=== PATIENT | male | born 1955 | race Caucasian/White ===

== ENCOUNTER 2021-04-24 19:51 | Inpatient (IN) | payer MEDICARE, MEDICAID, SELFPAY ==
--- NOTE | ~2021-04-24 | XR_ITS ---
EXAMINATION: XR CHEST CLINICAL INFORMATION: Shortness of breath COMPARISON: Chest x-ray July 14, 2019 TECHNIQUE: 2 views of the chest were obtained. FINDINGS: The cardiac silhouette is mildly enlarged. Lungs are adequately aerated. There is no lobar consolidation. No pleural effusion or pneumothorax. Approximately 1 cm nodular density of the lateral left lung base is nonspecific but suspected to represent a nipple shadow. Mild degenerative changes of the spine. XR/XR chest 2V IMPRESSION: No acute pulmonary pathology.
--- NOTE | ~2021-04-24 | NM_ITS ---
EXAMINATION: PULMONARY PERFUSION STUDY CLINICAL INFORMATION: Shortness of breath, legs swollen, elevated d-dimer. COMPARISON: No previous lung scan is available for comparison. Radiographs of the chest dated 04/24/2021, the same date as this lung scan are available for comparison. TECHNIQUE: Following the intravenous injection of 4.0 mCi Tc-99m MAA, an 8-view perfusion study was performed using a gamma scintillation camera. FINDINGS: No segmental perfusion defects are present. There is homogeneous distribution of activity bilaterally. There are no focal anatomic appearing perfusion defects present. The cardiac silhouette mediastinum are moderately dilated. NM/NM pul perfusion IMPRESSION: Very low probability of pulmonary embolism. Cardiomegaly.
--- NOTE | ~2021-04-24 | US_ITS ---
EXAMINATION: US VENOUS ULTRASOUND WITH DOPPLER LOWER EXTREMITY, BILATERAL CLINICAL INFORMATION: Bilateral lower extremity swelling. Assess for occult DVT. COMPARISON: None TECHNIQUE: Ultrasound of the deep veins is performed from the hip to the calf with compression sonography and color and pulse Doppler assessment. Spectral analysis with color-flow imaging is performed. FINDINGS: RIGHT: There is normal venous compression and respiratory variation and augmented flow. The visualized common femoral vein, superficial femoral vein, profunda femoral vein, popliteal vein, and the trifurcation region shows no evidence of deep venous thrombosis. No popliteal fossa cyst. LEFT: There is normal venous compression and respiratory variation and augmented flow. The visualized common femoral vein, superficial femoral vein, profunda femoral vein, popliteal vein, and the trifurcation region shows no evidence of deep venous thrombosis. No popliteal fossa cyst. US/US venous duplex LE BI IMPRESSION: No DVT demonstrated in the bilateral lower extremity.
[2021-04-24 20:08] VITALS: BP 163/61; PULSE 64; RESP 13; TEMP 36.9; O2SAT 96; BMI 32.5
--- NOTE | 2021-04-24 20:09 | ECG_ITS ---
Test Reason : CHEST PAIN Blood Pressure : / mmHG Vent. Rate : 059 BPM Atrial Rate : 059 BPM P-R Int : 226 ms QRS Dur : 180 ms QT Int : 558 ms P-R-T Axes : 049 -27 -12 degrees QTc Int : 552 ms Sinus bradycardia with 1st degree A-V block Right bundle branch block Minimal voltage criteria for LVH, may be normal variant ( R in aVL ) Abnormal ECG Heart rate has decreased Referred By: Sally Howard Electronically Signed By:BRIANA CANAS MD
--- NOTE | 2021-04-24 20:10 | ED_ITS ---
HPI - Chest Pain General Chief Complaint: Chest Pain Stated Complaint: chf Time Seen by Provider: 04/24/21 19:54 Source: EMS Mode of arrival: EMS Limitations: no limitations History of Present Illness HPI narrative: 65-year-old male to female who goes by Sasha from [facility] with a past medical history of cardiomyopathy with an EF of 30-40% on 40 mg of Lasix, RV dysfunction, [id number] aortic regurgitation, schizoaffective disorder, anxiety, depression, hyperlipidemia, recurrent pancreatitis here with complaints of increasing leg swelling over the last week with a 20 lb weight gain with shortness of breath and chest pain fell today. Chest pain is constant, worsened with deep breathing with no associated cough or fever. Related Data Home Medications Medication Instructions Recorded Confirmed alprazolam 1 mg tablet 1 tab PO BID PRN 04/24/21 04/24/21 amiodarone 400 mg tablet 1 tab PO DAILY 04/24/21 04/24/21 atorvastatin 40 mg tablet 1 tab PO DAILY 04/24/21 04/24/21 carvedilol 25 mg tablet 1 tab PO BID 04/24/21 04/24/21 diazepam 2 mg tablet 1 tab PO TID 04/24/21 04/24/21 furosemide 40 mg tablet 1 tab PO DAILY 04/24/21 04/24/21 hydroxyzine HCl 25 mg tablet 1 tab PO BID 04/24/21 04/24/21 isosorbide mononitrate 60 mg 1 tab PO DAILY 04/24/21 04/24/21 tablet,extended release 24 hr sacubitril 24 mg-valsartan 26 mg 1 tab PO BID 04/24/21 04/24/21 tablet (Entresto) Allergies Allergy/AdvReac Type Severity Reaction Status Date / Time No Known Allergies Allergy Unverified 03/23/20 19:45 [No Known Allergies*] Review of Systems Review of Systems: Yes all other systems are reviewed and are negative Constitutional: Constitutional: Reports no additional constitutional complaints, Denies body ache(s), Denies chills, Denies fever(s), Denies headache(s), Denies weakness and Reports weight gain Eyes: Eyes: Reports no additional eye complaints and Denies change in vision ENT: Reports system reviewed and no additional complaints, except as documented, Denies dizziness, Denies headache(s), Denies nasal congestion, Denies nasal discharge and Denies neck pain Cardiovascular: Cardiovascular: Reports no additional cardiovascular complaints, Reports chest pain, Reports leg edema and Reports dyspnea Respiratory: Respiratory: Reports no additional respiratory complaints, Denies cough and Reports dyspnea Gastrointestinal: Gastrointestinal: Reports no additional gastrointestinal complaints, Denies abdominal pain, Denies diarrhea, Denies nausea and Denies vomiting Genitourinary: Genitourinary: Denies urinary incontinence Musculoskeletal: Musculoskeletal: Reports no additional musculoskeletal complaints, Denies back pain, Denies arthralgias, Denies joint swelling, Denies neck pain, Denies numbness and Denies tingling Integumentary/Breasts: Skin/Breast: Reports system reviewed and no additional complaints, except as docu and Denies rash Neurologic: Reports system reviewed and no additional complaints, except as documented, Denies Abnormal speech present, Denies dizziness, Denies headache(s), Denies numbness, Denies tingling and Denies weakness PMFSH Past Medical History Attestation statement: The following information was validated with the patient. Source: old records reviewed and nursing notes reviewed Medical History (Updated 04/24/21 @ 22:09 by Rena Herron NP) Colon cancer Social History Social History Alcohol intake: never Patient Tobacco Use Status: Never used Tobacco Use of substances other than those prescribed or required for medical reasons: No Advance Directives: No Advance Directives Information Provided: No Physical Exam Vital Signs: Vital Signs: Last Vital Signs Temp 98.4 F 04/24/21 20:08 Pulse 65 04/24/21 23:13 Resp 12 04/24/21 23:13 BP 143/55 H 04/24/21 23:13 Pulse Ox 96 04/24/21 23:13 Body Mass Index 32.5 Const: General: cooperative, healthy appearing, comfortable and no acute distress Orientation/consciousness: patient oriented x3 Limitations: no limitations HENMT: Head: Yes normal to inspection Ears: hearing grossly normal bilaterally General nose exam: Normal external nose present Face and sinus: Yes normal facial exam Mouth: Normal oral and palatal mucosa present Throat: Yes posterior oropharynx normal Eyes: General: appearance normal, both eyes and all related structures Pupils: Equal, round and reactive pupils present Neck: Neck: Yes normal visual inspection Chest: Other: Central chest tender to palpate, worsened with deep breathing Chest palpation & inspection: normal inspection of the chest Resp: Effort & Inspection: normal respiratory effort Auscultation: clear to auscultation bilaterally Cardio: Rate: regular rate Rhythm: regular rhythm Peripheral pulses: Peripheral pulses 2+ throughout GI: Inspection: Yes normal to inspection Palpation (GI): Soft to palpation and nontender Auscultation: normal bowel sounds Back/Spine/Pelvis: Thoracic/Lumbar Spine: thoracic and lumbar spine normal to inspection Skin: General skin exam: no rashes or lesions noted Neuro: General: patient oriented x3, no focal motor deficits and normal sensation to monofilament Cranial nerves: Yes Equal, round and reactive pupils present Cognition (Neuro): normal cognition Speech: No Abnormal sp eech present Gait exam (Neuro): Normal gait present Motor exam (neuro): 5/5 motor strength present throughout Extrem: Other: Bilateral lower extremity edema which is pitting extending to the knees 2+ no pain Small abrasion to the left dorsal distal tibia with mild erythema General: Yes normal to inspection Course Course Course Narrative: 65-year-old male to female transgender here with complaints of weight gain, lower extremity swelling, shortness of breath and pleuritic chest pain. On exam vitals are stable. She does have bilateral lower extremity pitting edema. Will need chest x-ray, EKG, labs. Will likely need diuresis and admission 2200-chest x-ray shows no acute finding. Initial troponin indeterminate at 21. EKG shows no changes. Chest pain is atypical in nature. Will plan for repeat 3 hour troponin. BNP elevated. Symptoms likely related to congestive heart failure. Will give 40 mg IV Lasix. Will need admission 2214-spoke to Dr. Howard accepted admission. Repeat troponin and D-dimer are pending 2244-elevated D-dimer. Discussed case with Dr. Howard from medicine. Unable to obtain CT a due to renal function. Therefore a V/Q scan was ordered (will not happen till AM-medicine will follow). Bilateral lower extremity ultrasound. MDM - Chest Pain MDM Narrative Medical decision making narrative: ACS, PE, CHF exacerbation, pneumonia Medical Records Data Attestation: I reviewed the patient's medical records. Lab Data Attestation: I reviewed the patient's lab results. Result diagrams: 04/24/21 20:21 04/24/21 20:21 Labs: Lab Results 04/24/21 04/24/21 04/24/21 Range/Units 20:21 20:21 20:21 WBC 6.8 (4.8-10.8) X10*3/uL RBC 4.10 L (4.60-5.80) X10*6/uL Hgb 12.8 L (14.0-18.0) g/dl Hct 36.6 L (42-52) % MCV 89.3 (80-98) fL MCH 31.2 (27.0-33.0) pg MCHC 35.0 (31.0-36.0) g/dl RDW 12.7 (11.0-16.0) % Plt Count 184 (160-400) X10*3/uL MPV 8.8 L (9.4-12.4) fL Immature Gran % (Auto) 0.3 (0.0-0.4) % Neut % (Auto) 56.7 (45-73) % Lymph % (Auto) 28.3 (20-40) % Collier % (Auto) 7.8 (2-11) % Eos % (Auto) 5.9 H (0-4) % Baso % (Auto) 1.0 (0-2) % Lymph # (Auto) 1.9 (1.2-4.9) X10*3/uL Collier # (Auto) 0.5 (0.1-1.2) X10*3/uL Eos # (Auto) 0.4 (0.0-0.4) X10*3/uL Baso # (Auto) 0.1 (0.0-0.2) X10*3/uL Abs Immat Gran (auto) 0.02 (0.00-0.03) X10*3/uL Absolute Neuts (auto) 3.8 (2.0-8.3) X10*3/uL Absolute Nucleated RBC 0.000 (0.0-0.012) X10*3/uL Nucleated RBC % (auto) 0.0 (0.0-0.2) /100WBC PT 12.7 (9.9-13.0) SEC INR 1.1 (0.9-1.1) D-Dimer 573 NG/ML Sodium 140 (135-145) mmol/L Potassium 3.8 (3.3-5.1) mmol/L Chloride 108 (96-108) mmol/L Carbon Dioxide 23 (22-29) mmol/L Anion Gap 13 (12-20) BUN 15 (9-16) mg/dL Creatinine 1.52 H (0.5-1.4) mg/dL Estim Creat Clear Calc 54.7 Estimated GFR 46 Random Glucose 90 (60-115) mg/dL Calcium 8.1 L (8.4-10.2) mg/dL Magnesium 2.2 (1.6-2.6) mg/dL Total Bilirubin 0.5 (0.0-1.0) mg/dL Direct Bilirubin 0.3 (0.0-0.5) mg/dL AST 35 (5-37) U/L ALT 58 H (0-40) U/L Alkaline Phosphatase 71 (39-117) U/L Troponin I High Sens (<3.5-35.0) ng/L B-Natriuretic Peptide (<100) pg/mL Total Protein 7.0 (6.5-8.0) g/dL Albumin 4.0 (3.5-5.0) g/dL Lipase 40 (8-78) U/L COVID-19 (MICHAEL) (Negative) COVID-19 Clin Com 04/24/21 04/24/21 Range/Units 20:21 20:21 WBC (4.8-10.8) X10*3/uL RBC (4.60-5.80) X10*6/uL Hgb (14.0-18.0) g/dl Hct (42-52) % MCV (80-98) fL MCH (27.0-33.0) pg MCHC (31.0-36.0) g/dl RDW (11.0-16.0) % Plt Count (160-400) X10*3/uL MPV (9.4-12.4) fL Immature Gran % (Auto) (0.0-0.4) % Neut % (Auto) (45-73) % Lymph % (Auto) (20-40) % Collier % (Auto) (2-11) % Eos % (Auto) (0-4) % Baso % (Auto) (0-2) % Lymph # (Auto) (1.2-4.9) X10*3/uL Collier # (Auto) (0.1-1.2) X10*3/uL Eos # (Auto) (0.0-0.4) X10*3/uL Baso # (Auto) (0.0-0.2) X10*3/uL Abs Immat Gran (auto) (0.00-0.03) X10*3/uL Absolute Neuts (auto) (2.0-8.3) X10*3/uL Absolute Nucleated RBC (0.0-0.012) X10*3/uL Nucleated RBC % (auto) (0.0-0.2) /100WBC PT (9.9-13.0) SEC INR (0.9-1.1) D-Dimer NG/ML Sodium (135-145) mmol/L Potassium (3.3-5.1) mmol/L Chloride (96-108) mmol/L Carbon Dioxide (22-29) mmol/L Anion Gap (12-20) BUN (9-16) mg/dL Creatinine (0.5-1.4) mg/dL Estim Creat Clear Calc Estimated GFR Random Glucose (60-115) mg/dL Calcium (8.4-10.2) mg/dL Magnesium (1.6-2.6) mg/dL Total Bilirubin (0.0-1.0) mg/dL Direct Bilirubin (0.0-0.5) mg/dL AST (5-37) U/L ALT (0-40) U/L Alkaline Phosphatase (39-117) U/L Troponin I High Sens 21.8 (<3.5-35.0) ng/L B-Natriuretic Peptide 837 H (<100) pg/mL Total Protein (6.5-8.0) g/dL Albumin (3.5-5.0) g/dL Lipase (8-78) U/L COVID-19 (MICHAEL) Negative (Negative) COVID-19 Clin Com See Note Imaging Data Chest x-ray: Attestation: I personally reviewed and interpreted this imaging study as follows: Radiologist's impression: FINDINGS: The cardiac silhouette is mildly enlarged. Lungs are adequately aerated. There is no lobar consolidation. No pleural effusion or pneumothorax. Approximately 1 cm nodular density of the lateral left lung base is nonspecific but suspected to represent a nipple shadow. Mild degenerative changes of the spine. XR/XR chest 2V IMPRESSION: No acute pulmonary pathology. ECG Data ECG #1: Attestation: I personally reviewed and interpreted this ECG as follows: ECG interpretation date: 04/24/21 ECG interpretation time: 21:08 Interpretation: Sinus bradycardia with first-degree AV block, right bundle branch block, ST depressions in leads 3 and V6 Discharge Plan Discharge Clinical Impression: Atypical chest pain, CHF (congestive heart failure) Patient Disposition: Admitted As Inpatient
[2021-04-24 20:28] LABS: MANUAL DIFF FLAG NO
[2021-04-24 20:30] LABS: Basophils Absolute Auto 0.1 X10*3/uL (0.0-0.2); Eosinophils Absolute Auto 0.4 X10*3/uL (0.0-0.4); Eosinophils Percent Auto 5.9 % (0-4); Hematocrit 36.6 % (42-52); Hemoglobin 12.8 g/dl (14.0-18.0); Imm Gran Abs Auto 0.02 X10*3/uL (0.00-0.03); Imm Gran Pct Auto 0.3 % (0.0-0.4); Lymphocytes Absolute Auto 1.9 X10*3/uL (1.2-4.9); Lymphocytes Percent Auto 28.3 % (20-40); Mean Corpuscular Hemoglobin 31.2 pg (27.0-33.0); Mean Corpuscular Volume 89.3 fL (80-98); Mean Platelet Volume 8.8 fL (9.4-12.4); Monocytes Absolute Auto 0.5 X10*3/uL (0.1-1.2); Monocytes Percent Auto 7.8 % (2-11); Neutrophils Absolute Auto 3.8 X10*3/uL (2.0-8.3); Neutrophils Percent Auto 56.7 % (45-73); Platelet Count 184 X10*3/uL (160-400); Red Cell Distribution Width 12.7 % (11.0-16.0); White Blood Count 6.8 X10*3/uL (4.8-10.8)
[2021-04-24 20:35] LABS: INTERNATIONAL NORM RATIO 1.1 (0.9-1.1); Prothrombin Time 12.7 SEC (9.9-13.0)
[2021-04-24 20:45] LABS: COVID-19 Test Negative (Negative)
[2021-04-24 20:50] LABS: Alanine Aminotransferase 58 U/L (0-40); Alkaline Phosphatase 71 U/L (39-117); Anion Gap 13 (12-20); Aspartate Amino Transferase 35 U/L (5-37); Bilirubin Direct 0.3 mg/dL (0.0-0.5); Bilirubin Total 0.5 mg/dL (0.0-1.0); Blood Urea Nitrogen 15 mg/dL (9-16); Calcium 8.1 mg/dL (8.4-10.2); Carbon Dioxide 23 mmol/L (22-29); Chloride 108 mmol/L (96-108); Creatinine Clr Calc Pharmacy 54.7; Estimated Glomerular Filt Rate 46; Glucose Random 90 mg/dL (60-115); Lipase 40 U/L (8-78); Magnesium 2.2 mg/dL (1.6-2.6); Potassium 3.8 mmol/L (3.3-5.1); Sodium 140 mmol/L (135-145)
[2021-04-24 20:51] LABS: B Type Natriuretic Peptide 837 pg/mL (<100); Troponin-I High Sensitivity 21.8 ng/L (<3.5-35.0)
[2021-04-24 22:38] LABS: D Dimer 573 NG/ML
[2021-04-24] MEDS: Furosemide 40 MG/4 ML VIAL IVPUSH (22:40)
[2021-04-24 23:13] VITALS: BP 143/55; PULSE 65; RESP 12; O2SAT 96
--- NOTE | 2021-04-24 23:21 | ECG_ITS ---
Test Reason : CHEST PAIN Blood Pressure : / mmHG Vent. Rate : 063 BPM Atrial Rate : 063 BPM P-R Int : 224 ms QRS Dur : 182 ms QT Int : 522 ms P-R-T Axes : 046 -23 -18 degrees QTc Int : 534 ms Sinus rhythm with 1st degree A-V block with occasional Premature ventricular complexes Right bundle branch block Minimal voltage criteria for LVH, may be normal variant ( R in aVL ) Abnormal ECG When compared with ECG of 24-APR-2021 21:08, Premature ventricular complexes are now Present Referred By: Sally Howard Electronically Signed By:BRIANA CANAS MD
--- NOTE | 2021-04-24 23:21 | PM.IMHP ---
History of Present Illness Date of Service: 04/24/21 Chief Complaint: Shortness of breath, chest pain This is a transgender female with past medical history of colon cancer, CHF with an ejection fraction of 35-40%, hyperlipidemia, schizoaffective disorder, anxiety and depression, who presents the hospital with complaints of shortness of breath, lower extremity swelling, as well as atypical left-sided chest pain. Patient reports that all her symptoms started about 1 week ago. Which she gained about 20 lb. She reports swelling in her abdomen legs, but she has pain all over the body but more on the left side that is sharp radiating to the back and front, this started this morning, intermittent, about 7/10, exacerbated by deep breath. Patient reports compliance with her Lasix 40 mg daily. Patient also complains of orthopnea and PND Denies any palpitations, no cough, no sputum production, abdominal pain nausea or vomiting, no diarrhea constipation, and no urinary symptoms. On arrival to the ED patient hemodynamically stable no significant abnormal vitals Labs are significant for WBC count of 6.8, hemoglobin of 12.8 nearly 15, creatinine of 1.52, with a baseline around 1.1 BNP of 837, COVID-19 negative, of 21 that increased to 25, EKG shows sinus bradycardia with right bundle-branch block, and nonspecific ST T wave changes Chest x-ray shows no acute pulmonary pathology Review of Systems Review of Systems: Yes all other systems are reviewed and are negative [facility] Medical History CHF (congestive heart failure) Colon cancer Hypertension Schizoaffective disorder Pertinent family history: Denies any family history Social History Alcohol intake: never Patient Tobacco Use Status: Never used Tobacco Use of substances other than those prescribed or required for medical reasons: No Advance Directives: No Advance Directives Information Provided: No Meds Allergies Allergy/AdvReac Type Severity Reaction Status Date / Time No Known Allergies Allergy Unverified 03/23/20 19:45 [No Known Allergies*] Active Medications: Current Medications Pharmacy Consult (Consult Rx Perform Med Rec) 1 each MISCELLANE ONCE PRN PRN Reason: Consult order Home Medications Medication Instructions Recorded Confirmed Last Taken Type alprazolam 1 mg tablet 1 tab PO BID PRN 04/24/21 04/24/21 Unknown History amiodarone 400 mg tablet 1 tab PO DAILY 04/24/21 04/24/21 Unknown History atorvastatin 40 mg tablet 1 tab PO DAILY 04/24/21 04/24/21 Unknown History carvedilol 25 mg tablet 1 tab PO BID 04/24/21 04/24/21 Unknown History diazepam 2 mg tablet 1 tab PO TID 04/24/21 04/24/21 Unknown History furosemide 40 mg tablet 1 tab PO DAILY 04/24/21 04/24/21 Unknown History hydroxyzine HCl 25 mg tablet 1 tab PO BID 04/24/21 04/24/21 Unknown History isosorbide mononitrate 60 mg 1 tab PO DAILY 04/24/21 04/24/21 Unknown History tablet,extended release 24 hr sacubitril 24 mg-valsartan 26 mg 1 tab PO BID 04/24/21 04/24/21 Unknown History tablet (Entresto) Physical Exam Vital Signs and Narrative: Vital Signs: Last Vital Signs Temp 98.4 F 04/24/21 20:08 Pulse 65 04/24/21 23:13 Resp 12 04/24/21 23:13 BP 143/55 H 04/24/21 23:13 Pulse Ox 96 04/24/21 23:13 Body Mass Index 32.5 Const: General: cooperative and no acute distress Orientation/consciousness: patient oriented x3 Eyes: General: appearance normal, both eyes and all related structures Pupils: Equal, round and reactive pupils present Resp: Effort & Inspection: normal respiratory effort Auscultation: clear to auscultation bilaterally Cardio: Rate: regular rate Rhythm: regular rhythm GI: Palpation (GI): Soft to palpation Auscultation: normal bowel sounds Skin: General skin exam: no rashes or lesions noted Neuro: General: patient oriented x3 Cranial nerves: Yes Equal, round and reactive pupils present Cognition (Neuro): normal cognition Extrem: Other: 3+ pitting edema bilaterally General: Yes normal to inspection Results Labs CBC and Chem 7: 04/25/21 06:28 04/25/21 06:28 Labs: Laboratory Results - last 24 hr 04/24/21 04/24/21 04/24/21 20:21 20:21 20:21 MCV 89.3 MCH 31.2 MCHC 35.0 RDW 12.7 Plt Count 184 MPV 8.8 L Immature Gran % (Auto) 0.3 Neut % (Auto) 56.7 Lymph % (Auto) 28.3 Angelina % (Auto) 7.8 Eos % (Auto) 5.9 H Baso % (Auto) 1.0 Lymph # (Auto) 1.9 Angelina # (Auto) 0.5 Eos # (Auto) 0.4 Baso # (Auto) 0.1 Abs Immat Gran (auto) 0.02 Absolute Neuts (auto) 3.8 Absolute Nucleated RBC 0.000 Nucleated RBC % (auto) 0.0 PT 12.7 INR 1.1 D-Dimer 573 Anion Gap 13 Estim Creat Clear Calc 54.7 Estimated GFR 46 Random Glucose 90 Calcium 8.1 L Magnesium 2.2 Total Bilirubin 0.5 Direct Bilirubin 0.3 AST 35 ALT 58 H Alkaline Phosphatase 71 Troponin I High Sens B-Natriuretic Peptide Total Protein 7.0 Albumin 4.0 Lipase 40 COVID-19 (MICHAEL) COVID-[employer] Com 04/24/21 04/24/21 20:21 20:21 MCV MCH MCHC RDW Plt Count MPV Immature Gran % (Auto) Neut % (Auto) Lymph % (Auto) Angelina % (Auto) Eos % (Auto) Baso % (Auto) Lymph # (Auto) Angelina # (Auto) Eos # (Auto) Baso # (Auto) Abs Immat Gran (auto) Absolute Neuts (auto) Absolute Nucleated RBC Nucleated RBC % (auto) PT INR D-Dimer Anion Gap Estim Creat Clear Calc Estimated GFR Random Glucose Calcium Magnesium Total Bilirubin Direct Bilirubin AST ALT Alkaline Phosphatase Troponin I High Sens 21.8 B-Natriuretic Peptide 837 H Total Protein Albumin Lipase COVID-19 (MICHAEL) Negative COVID-19 Clin Com See Note Imaging Radiologist's Impressions: Impressions Chest X-Ray 04/24/21 20:09 IMPRESSION: No acute pulmonary pathology. Assessment and Plan (1) Atypical chest pain: Status: Acute (2) CHF exacerbation: Status: Acute (3) NATIVDIAD (acute kidney injury): Status: Acute 65-year-old male to female transgender who presents to the hospital with complaints of shortness of breath, as well as lower extremity edema found to have CHF exacerbation # acute CHF exacerbation - has dyspnea, orthopnea, PND, elevated BNP lower extremity edema - has history of CHF with the reduced ejection fraction of 35-40% - on 40 of Lasix at baseline - at this time will start her on Lasix 40 IV b.i.d. - daily weight, strict I&O, low-sodium diet - echocardiogram - will consult Cardiology - continue Entresto, carvedilol, as well as Imdur # atypical pleuritic chest pain - no evidence of elevated troponin or EKG changes suggestive of ACS - has elevated D-dimer which may be secondary to his NATIVIDAD - patient has NATIVIDAD therefore unable to obtain CT angiogram - will obtain V/Q scan as well as venous Dopplers of lower extremities - at this time will start prophylactic Lovenox # NATIVIDAD - most likely secondary to CHF - start Lasix as above - follow BMP DVT prophylaxis: Lovenox Quality Stroke Does the patient have a stroke diagnosis?: No VTE Prior VTE?: No VTE Risk Level:: Medical - moderate - high VTE Device Contraindication: Treatment Not Indicated VTE Drug Contraindication: N/A - Med Ordered
[2021-04-24 23:37] VITALS: BP 143/55; PULSE 65; RESP 12; TEMP 36.9; O2SAT 96
[2021-04-24 23:55] LABS: Troponin-I High Sensitivity 25.4 ng/L (<3.5-35.0)
[2021-04-25] MEDS: diazePAM 2 MG TABLET PO ×4 (00:46→20:24)
[2021-04-25 03:25] VITALS: PULSE 47; RESP 14
[2021-04-25 05:27] VITALS: RESP 16
[2021-04-25] MEDS: Morphine Sulfate 4 MG/ML CARTRIDGE IVPUSH (05:27)
[2021-04-25 05:31] VITALS: BP 166/56; PULSE 59; RESP 16; O2SAT 96
[2021-04-25] MEDS: ALPRAZolam 0.5 MG TABLET 1 MG PO ×2 (05:36→12:08)
--- NOTE | 2021-04-25 06:24 | PC.NURSE ---
Patient is very histrionic is her presentation. Patient stated that she feels that her body is going to while in the hospital. She states I hope you know how really sick I am but I am okay with dying. Please make sure that the doctors are aware. Per patient she has an extensive cardiac history and is on many pain medications due to her extreme pain and espescially her chest pain. Patient is sinus jelena on the monitor. Blood pressure and other vital signs are stable. Patient also stating that she didnt sleep one ounce last night. I reassured the patient that the staff will take very good care of her while she was here and the doctors here are very good. I also informed her that she was in the right place and safe. Patient thanked me for caring and went back to resting quietly. Patient medicated for pain and anxiety.
[2021-04-25 06:33] LABS: MANUAL DIFF FLAG NO
[2021-04-25 06:36] LABS: Basophils Absolute Auto 0.1 X10*3/uL (0.0-0.2); Basophils Percent Auto 1.3 % (0-2); Eosinophils Absolute Auto 0.5 X10*3/uL (0.0-0.4); Eosinophils Percent Auto 7.2 % (0-4); Hematocrit 37.7 % (42-52); Hemoglobin 13.2 g/dl (14.0-18.0); Imm Gran Abs Auto 0.02 X10*3/uL (0.00-0.03); Imm Gran Pct Auto 0.3 % (0.0-0.4); Lymphocytes Absolute Auto 2.1 X10*3/uL (1.2-4.9); Lymphocytes Percent Auto 32.8 % (20-40); Mean Corpuscular Hemoglobin 31.7 pg (27.0-33.0); Mean Corpuscular Volume 90.6 fL (80-98); Mean Platelet Volume 8.6 fL (9.4-12.4); Monocytes Absolute Auto 0.6 X10*3/uL (0.1-1.2); Monocytes Percent Auto 8.6 % (2-11); Neutrophils Absolute Auto 3.2 X10*3/uL (2.0-8.3); Neutrophils Percent Auto 49.8 % (45-73); Platelet Count 173 X10*3/uL (160-400); Red Blood Count 4.16 X10*6/uL (4.60-5.80); Red Cell Distribution Width 12.8 % (11.0-16.0); White Blood Count 6.4 X10*3/uL (4.8-10.8)
[2021-04-25 06:51] LABS: Anion Gap 13 (12-20); Blood Urea Nitrogen 14 mg/dL (9-16); Calcium 8.1 mg/dL (8.4-10.2); Carbon Dioxide 26 mmol/L (22-29); Chloride 104 mmol/L (96-108); Creatinine Clr Calc Pharmacy 53.3; Estimated Glomerular Filt Rate 45; Glucose Random 85 mg/dL (60-115); Potassium 3.5 mmol/L (3.3-5.1); Sodium 139 mmol/L (135-145)
--- NOTE | 2021-04-25 11:02 | PM.CNCAR ---
History of Present Illness History of Present Illness Date of Service: 04/25/21 Chief complaint: Chf Exacerbation Narrative: This is a cardiology consultation regarding shortness of breath and chest pain. It seems that she is a patient of [facility]. Last ejection fraction for 2019 was 30-40%. Patient has also undergone a diagnostic catheterization that showed no significant coronary disease. It seems that patient has had several admissions for chest pains in the past. Current admission is again for shortness of breath, leg swelling and atypical left-sided chest pain. Per H and P, there has been a 20 lb weight gain. There is also sensation of distention in the abdomen. Pain is very atypical as it is present all over the body on the left side including legs. Review of Systems Review of Systems: Yes all other systems are reviewed and are negative Cardiovascular: Cardiovascular: Reports as per HPI, Reports no additional cardiovascular complaints, Denies acrocyanosis, Denies cool extremities, Denies painful fingertips, Reports chest pain, Reports chest pain at rest, Denies diaphoresis, Denies syncope, Denies irregular heart rhythm, Denies claudication, Denies leg edema, Denies lightheadedness, Denies palpitations and Reports dyspnea Respiratory: Respiratory: Reports dyspnea Neurologic: Denies syncope Endocrine: Endocrine: Denies palpitations PMFSH Past Medical History Medical History CHF (congestive heart failure) Colon cancer Hypertension Schizoaffective disorder Social History Social History Alcohol intake: never Patient Tobacco Use Status: Never used Tobacco Use of substances other than those prescribed or required for medical reasons: No Advance Directives: No Advance Directives Information Provided: No Meds Allergies Allergy/AdvReac Type Severity Reaction Status Date / Time No Known Allergies Allergy Unverified 03/23/20 19:45 [No Known Allergies*] Active Medications: Current Medications Acetaminophen (Acetaminophen 325 Mg Tablet) 650 mg PO Q6H PRN PRN Reason: Pain, Mild (Pain Scale 1-3) Albuterol/Ipratropium (Albuterol/Iprat 2.5/0.5mg 3 Ml Ampul.Neb) 3 ml INHALE RQ4H PRN PRN Reason: Shortness of Breath/Wheezing Alprazolam (Alprazolam 0.5 Mg Tablet) 1 mg PO BID PRN PRN Reason: Anxiety Last Admin: 04/25/21 05:36 Dose: 1 mg Documented by: Amiodarone HCl (Amiodarone Hcl 200 Mg Tablet) 400 mg PO DAILY [facility] Atorvastatin Calcium (Atorvastatin Calcium 40 Mg Tablet) 40 mg PO DAILY [facility] Carvedilol (Carvedilol 25 Mg Tablet) 25 mg PO BID [facility]; Protocol Diazepam (Diazepam 2 Mg Tablet) 2 mg PO TID [facility] Last Admin: 04/25/21 00:46 Dose: 2 mg Documented by: Docusate Sodium (Docusate Sodium 100 Mg Capsule) 100 mg PO DAILY PRN PRN Reason: Constipation Enoxaparin Sodium (Enoxaparin Sodium 40 Mg/0.4 Ml Syringe) 40 mg SUBCUT Q24H [facility] Last Admin: 04/25/21 00:47 Dose: Not Given Documented by: Furosemide (Furosemide 40 Mg/4 Ml Vial) 40 mg IVPUSH BID@0900,1800 [facility]; Protocol Hydroxyzine HCl (Hydroxyzine Hcl 25 Mg Tablet) 25 mg PO BID [facility] Isosorbide Mononitrate (Isosorbide Mononitrate 60 Mg Tab.Er.24h) 60 mg PO DAILY [facility]; Protocol Morphine Sulfate (Morphine Sulfate 4 Mg/Ml Cartridge) 4 mg IVPUSH Q4H PRN; Protocol PRN Reason: Pain, Severe (Pain Scale 7-10) Last Admin: 04/25/21 05:27 Dose: 4 mg Documented by: Ondansetron HCl (Ondansetron Hcl 4 Mg/2 Ml Vial) 4 mg IVPUSH Q8H PRN PRN Reason: Nausea and Vomiting Pharmacy Consult (Consult Rx Perform Med Rec) 1 each MISCELLANE ONCE PRN PRN Reason: Consult order Sacubitril/Valsartan (Sacubitril/Valsartan 1 Tab Tablet) 1 tab PO BID [facility]; Protocol Sodium Chloride (0.9 % Sodium Chloride Flush 3 Ml Syringe) 3 ml IVFLUSH QSHIFT [facility] Last Admin: 04/25/21 00:47 Dose: Not Given Documented by: Home Medications Medication Instructions Recorded Confirmed Last Taken Type alprazolam 1 mg tablet 1 tab PO BID PRN 04/24/21 04/24/21 Unknown History amiodarone 400 mg tablet 1 tab PO DAILY 04/24/21 04/24/21 Unknown History atorvastatin 40 mg tablet 1 tab PO DAILY 04/24/21 04/24/21 Unknown History carvedilol 25 mg tablet 1 tab PO BID 04/24/21 04/24/21 Unknown History diazepam 2 mg tablet 1 tab PO TID 04/24/21 04/24/21 Unknown History furosemide 40 mg tablet 1 tab PO DAILY 04/24/21 04/24/21 Unknown History hydroxyzine HCl 25 mg tablet 1 tab PO BID 04/24/21 04/24/21 Unknown History isosorbide mononitrate 60 mg 1 tab PO DAILY 04/24/21 04/24/21 Unknown History tablet,extended release 24 hr sacubitril 24 mg-valsartan 26 mg 1 tab PO BID 04/24/21 04/24/21 Unknown History tablet (Entresto) Physical Exam Vital Signs: Vital Signs: Last Vital Signs Temp 98.4 F 04/24/21 23:37 Pulse 59 04/25/21 05:31 Resp 16 04/25/21 05:31 BP 166/56 H 04/25/21 05:31 Pulse Ox 96 04/25/21 05:31 Body Mass Index 32.5 Const: General: cooperative and no acute distress HENMT: Other: Unremarkable Neck: Neck: Yes normal visual inspection Chest: Chest palpation & inspection: normal inspection of the chest Resp: Auscultation: clear to auscultation bilaterally, no crackles and no wheezes Cardio: Jugular venous distension: no JVD Palpation: normal PMI Heart sounds: S1 normal heart sound present, S2 normal heart sound present, no gallops, no murmurs and no rubs GI: Palpation (GI): Soft to palpation Back/Spine/Pelvis: Other: unremarkable Skin: General skin exam: no rashes or lesions noted Neuro: Cranial nerves: Yes Other cranial nerve findings present Extrem: General: Yes pedal edema (1+) Psych: Mental Status: other Results Labs and Meds Result diagrams: 04/25/21 06:28 04/25/21 06:28 Lab results: Laboratory Results - last 24 hr 04/24/21 04/24/21 04/24/21 20:21 20:21 20:21 WBC 6.8 RBC 4.10 L Hgb 12.8 L Hct 36.6 L MCV 89.3 MCH 31.2 MCHC 35.0 RDW 12.7 Plt Count 184 MPV 8.8 L Immature Gran % (Auto) 0.3 Neut % (Auto) 56.7 Lymph % (Auto) 28.3 [place] % (Auto) 7.8 Eos % (Auto) 5.9 H Baso % (Auto) 1.0 Lymph # (Auto) 1.9 [place] # (Auto) 0.5 Eos # (Auto) 0.4 Baso # (Auto) 0.1 Abs Immat Gran (auto) 0.02 Absolute Neuts (auto) 3.8 Absolute Nucleated RBC 0.000 Nucleated RBC % (auto) 0.0 PT 12.7 INR 1.1 D-Dimer 573 Sodium 140 Potassium 3.8 Chloride 108 Carbon Dioxide 23 Anion Gap 13 BUN 15 Creatinine 1.52 H Estim Creat Clear Calc 54.7 Estimated GFR 46 Random Glucose 90 Calcium 8.1 L Magnesium 2.2 Total Bilirubin 0.5 Direct Bilirubin 0.3 AST 35 ALT 58 H Alkaline Phosphatase 71 Troponin I High Sens B-Natriuretic Peptide Total Protein 7.0 Albumin 4.0 Lipase 40 COVID-19 (MICHAEL) COVID-InstaGIS 04/24/21 04/24/21 04/24/21 20:21 20:21 23:29 WBC RBC Hgb Hct MCV MCH MCHC RDW Plt Count MPV Immature Gran % (Auto) Neut % (Auto) Lymph % (Auto) [place] % (Auto) Eos % (Auto) Baso % (Auto) Lymph # (Auto) [place] # (Auto) Eos # (Auto) Baso # (Auto) Abs Immat Gran (auto) Absolute Neuts (auto) Absolute Nucleated RBC Nucleated RBC % (auto) PT INR D-Dimer Sodium Potassium Chloride Carbon Dioxide Anion Gap BUN Creatinine Estim Creat Clear Calc Estimated GFR Random Glucose Calcium Magnesium Total Bilirubin Direct Bilirubin AST ALT Alkaline Phosphatase Troponin I High Sens 21.8 25.4 B-Natriuretic Peptide 837 H Total Protein Albumin Lipase COVID-19 (MICHAEL) Negative COVIDSkai See Note 04/25/21 04/25/21 06:28 06:28 WBC 6.4 RBC 4.16 L Hgb 13.2 L Hct 37.7 L MCV 90.6 MCH 31.7 MCHC 35.0 RDW 12.8 Plt Count 173 MPV 8.6 L Immature Gran % (Auto) 0.3 Neut % (Auto) 49.8 Lymph % (Auto) 32.8 [place] % (Auto) 8.6 Eos % (Auto) 7.2 H Baso % (Auto) 1.3 Lymph # (Auto) 2.1 [place] # (Auto) 0.6 Eos # (Auto) 0.5 H Baso # (Auto) 0.1 Abs Immat Gran (auto) 0.02 Absolute Neuts (auto) 3.2 Absolute Nucleated RBC 0.000 Nucleated RBC % (auto) 0.0 PT INR D-Dimer Sodium 139 Potassium 3.5 Chloride 104 Carbon Dioxide 26 Anion Gap 13 BUN 14 Creatinine 1.56 H Estim Creat Clear Calc 53.3 Estimated GFR 45 Random Glucose 85 Calcium 8.1 L Magnesium Total Bilirubin Direct Bilirubin AST ALT Alkaline Phosphatase Troponin I High Sens B-Natriuretic Peptide Total Protein Albumin Lipase COVID-19 (MICHAEL) COVID-19 Clin Com ECG Interpretation: EKG with sinus rhythm, right bundle-branch block pattern, PVCs. Imaging Radiologist's impression: Impressions Chest X-Ray 04/24/21 20:09 IMPRESSION: No acute pulmonary pathology. Pulmonary Perfusion Imaging 04/24/21 22:48 IMPRESSION: Very low probability of pulmonary embolism. Cardiomegaly. Venous Duplex 04/25/21 09:01 IMPRESSION: No DVT demonstrated in the bilateral lower extremity. Assessment and Plan (1) Acute on chronic systolic (congestive) heart failure: Status: Acute (2) NICM (nonischemic cardiomyopathy): Status: Acute (3) Atypical chest pain: Status: Acute (4) PVC (premature ventricular contraction): Status: Acute Previous cardiology documentation reviewed. Per echocardiogram in 2019, LVEF was 30-40%. There was mild to moderate aortic regurgitation. Aortic root measurement was 3.7 cm. Cardiac catheterization performed this year showed proximal LAD 30% stenosis but otherwise unremarkable. On review of the last office note from [facility] from February of this year, diagnosis was nonischemic cardiomyopathy. Per their note, it seems that patient had refused to have lab work done and hence there was a lot of difficulty in continuing medications like Entresto without knowing the renal function. Additionally, amiodarone was used primarily for suppressing the PVCs but again if lab work cannot be reliably followed, should not be using this either. For the time being, okay to try empiric diuretics. Stop amiodarone unless reliable outpatient follow-up. Same with Entresto. Chest pain itself is likely noncardiac and does not need any specific workup. Procedures Date of Service Date of Service: 04/25/21
[2021-04-25 11:16] VITALS: BP 166/56
[2021-04-25] MEDS: Amiodarone HCL 200 MG TABLET 400 MG PO (11:16)
[2021-04-25] MEDS: Atorvastatin Calcium 40 MG TABLET PO (11:16)
[2021-04-25] MEDS: carvediloL 25 MG TABLET PO ×2 (11:17→20:26)
[2021-04-25] MEDS: hydrOXYzine HCL 25 MG TABLET PO ×2 (11:17→20:25)
[2021-04-25] MEDS: Furosemide 40 MG/4 ML VIAL IVPUSH ×2 (11:17→17:18)
[2021-04-25] MEDS: Isosorbide Mononitrate 60 MG TAB.ER.24H PO (11:19)
--- NOTE | 2021-04-25 12:18 | PC.NURSE ---
pt requesting prn xanax early, given, tolerating po w/o issue. r
--- NOTE | 2021-04-25 14:26 | MHC.CM.PN ---
Addendum entered by Dara Flores 04/26/21 08:16: [facility], 2nd Pfizer given 07/28. Addendum entered by Dara Flores 04/25/21 15:32: Only received 1 dose of Covid vaccine 07/12. Original Note: Attempted to meet with patient in regards to discharge planning. 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 Patient's guardian is the [facility]. Patient prefers to be called Sasha . T/W spoke with patient's [place] bilingual case manager, Anne Chavira via telephone at [phone]. Anne is very familiar with patient. Sasha was born male, has a long standing history of schizophrenia and anxiety. Patient has breast implants but never completely surgically transitioned from male to female. IMM explained and sent via fax to [phone]. Anticipate patient will return to [facility] via BLS when medically stable. Sasha may try not to return to [facility]. However, because she has a guardian, she is not able to make this decision. Patient has a son named Felix Mishra. He lives in [place], [place]. Sasha and Felix only met for the first time on Sunday 04/22. Per Anne, no medical information is to be provided to Felix about the patient. Continue to monitor for d/c needs.
[2021-04-25 15:49] VITALS: BP 125/47; PULSE 51; RESP 18; TEMP 36.4; O2SAT 93
[2021-04-25 17:01] VITALS: BMI 30.6
[2021-04-25] MEDS: 0.9 % Sodium Chloride Flush 3 ML SYRINGE IVFLUSH ×2 (17:18→20:28)
[2021-04-25] MEDS: Docusate Sodium 100 MG CAPSULE PO (17:18)
--- NOTE | 2021-04-25 17:34 | HO.PM.IMPN ---
Subjective Subjective Date of Service: 04/25/21 Interval History: No acute issues overnight. Complaining of diffuse body pain Review of Systems Denies chest pain Denies shortness of breath Denies nausea vomiting diarrhea Physical Exam Vital Signs: Vital Signs: Last Vital Signs Temp 97.6 F 04/25/21 15:49 Pulse 51 04/25/21 15:49 Resp 18 04/25/21 15:49 BP 125/47 L 04/25/21 15:49 Pulse Ox 93 04/25/21 15:49 Body Mass Index 30.6 Const: Other: No acute issues overnight resting comfortably HENMT: Other: Membranes moist oropharynx clear Resp: Other: Clear to auscultation all enriquez no rales rhonchi or wheezes Cardio: Other: No S4 positive S1-S2 no S3 without murmurs or gallops GI: Other: Soft nontender nondistended with normoactive bowel sounds Neuro: Other: Cranial nerves 2-12 grossly intact as tested. Motor is 5/5 lower extremities sensation is intact Extrem: Other: No edema Objective Data Active Medications Acetaminophen (Acetaminophen 325 Mg Tablet) 650 mg PO Q6H PRN PRN Reason: Pain, Mild (Pain Scale 1-3) Albuterol/Ipratropium (Albuterol/Iprat 2.5/0.5mg 3 Ml Ampul.Neb) 3 ml INHALE RQ4H PRN PRN Reason: Shortness of Breath/Wheezing Alprazolam (Alprazolam 0.5 Mg Tablet) 1 mg PO BID PRN PRN Reason: Anxiety Last Admin: 04/25/21 12:08 Dose: 1 mg Documented by: YANDEL Amiodarone HCl (Amiodarone Hcl 200 Mg Tablet) 400 mg PO DAILY [facility] Last Admin: 04/25/21 11:16 Dose: 400 mg Documented by: YANDEL Atorvastatin Calcium (Atorvastatin Calcium 40 Mg Tablet) 40 mg PO DAILY [facility] Last Admin: 04/25/21 11:16 Dose: 40 mg Documented by: YANDEL Bisacodyl (Bisacodyl 5 Mg Tablet.) 10 mg PO BEDTIME [facility] Carvedilol (Carvedilol 25 Mg Tablet) 25 mg PO BID [facility]; Protocol Last Admin: 04/25/21 11:17 Dose: 25 mg Documented by: YANDEL Diazepam (Diazepam 2 Mg Tablet) 2 mg PO TID [facility] Last Admin: 04/25/21 15:51 Dose: 2 mg Documented by: GODWIN Docusate Sodium (Docusate Sodium 100 Mg Capsule) 100 mg PO DAILY PRN PRN Reason: Constipation Last Admin: 04/25/21 17:18 Dose: 100 mg Documented by: LOREN Enoxaparin Sodium (Enoxaparin Sodium 40 Mg/0.4 Ml Syringe) 40 mg SUBCUT Q24H [facility] Last Admin: 04/25/21 00:47 Dose: Not Given Documented by: CANDICE Non-Admin Reason: Patient Refused Furosemide (Furosemide 40 Mg/4 Ml Vial) 40 mg IVPUSH BID@0900,1800 [facility]; Protocol Last Admin: 04/25/21 17:18 Dose: 40 mg Documented by: LOREN Hydroxyzine HCl (Hydroxyzine Hcl 25 Mg Tablet) 25 mg PO BID [facility] Last Admin: 04/25/21 11:17 Dose: 25 mg Documented by: YANDEL Isosorbide Mononitrate (Isosorbide Mononitrate 60 Mg Tab.Er.24h) 60 mg PO DAILY [facility]; Protocol Last Admin: 04/25/21 11:19 Dose: 60 mg Documented by: YANDEL Morphine Sulfate (Morphine Sulfate 4 Mg/Ml Cartridge) 4 mg IVPUSH Q4H PRN; Protocol PRN Reason: Pain, Severe (Pain Scale 7-10) Last Admin: 04/25/21 05:27 Dose: 4 mg Documented by: MISSY Ondansetron HCl (Ondansetron Hcl 4 Mg/2 Ml Vial) 4 mg IVPUSH Q8H PRN PRN Reason: Nausea and Vomiting Pharmacy Consult (Consult Rx Perform Med Rec) 1 each MISCELLANE ONCE PRN PRN Reason: Consult order Sacubitril/Valsartan (Sacubitril/Valsartan 1 Tab Tablet) 1 tab PO BID [facility]; Protocol Last Admin: 04/25/21 11:28 Dose: Not Given Documented by: YANDEL Non-Admin Reason: Med Not Available Senna (Sennosides 8.6 Mg Tablet) 17.2 mg PO BEDTIME [facility] Sodium Chloride (0.9 % Sodium Chloride Flush 3 Ml Syringe) 3 ml IVFLUSH QSHIFT [facility] Last Admin: 04/25/21 17:18 Dose: 3 ml Documented by: LOREN Labs CBC & Chem 7: 04/25/21 06:28 04/25/21 06:28 Labs: Laboratory Results - last 24 hr 04/24/21 04/24/21 04/24/21 20:21 20:21 20:21 MCV 89.3 MCH 31.2 MCHC 35.0 RDW 12.7 Plt Count 184 MPV 8.8 L Immature Gran % (Auto) 0.3 Neut % (Auto) 56.7 Lymph % (Auto) 28.3 [place] % (Auto) 7.8 Eos % (Auto) 5.9 H Baso % (Auto) 1.0 Lymph # (Auto) 1.9 [place] # (Auto) 0.5 Eos # (Auto) 0.4 Baso # (Auto) 0.1 Abs Immat Gran (auto) 0.02 Absolute Neuts (auto) 3.8 Absolute Nucleated RBC 0.000 Nucleated RBC % (auto) 0.0 PT 12.7 INR 1.1 D-Dimer 573 Anion Gap 13 Estim Creat Clear Calc 54.7 Estimated GFR 46 Random Glucose 90 Calcium 8.1 L Magnesium 2.2 Total Bilirubin 0.5 Direct Bilirubin 0.3 AST 35 ALT 58 H Alkaline Phosphatase 71 Troponin I High Sens B-Natriuretic Peptide Total Protein 7.0 Albumin 4.0 Lipase 40 COVID-19 (MICHAEL) COVID-19 Clin Com 04/24/21 04/24/21 04/24/21 20:21 20:21 23:29 MCV MCH MCHC RDW Plt Count MPV Immature Gran % (Auto) Neut % (Auto) Lymph % (Auto) [place] % (Auto) Eos % (Auto) Baso % (Auto) Lymph # (Auto) [place] # (Auto) Eos # (Auto) Baso # (Auto) Abs Immat Gran (auto) Absolute Neuts (auto) Absolute Nucleated RBC Nucleated RBC % (auto) PT INR D-Dimer Anion Gap Estim Creat Clear Calc Estimated GFR Random Glucose Calcium Magnesium Total Bilirubin Direct Bilirubin AST ALT Alkaline Phosphatase Troponin I High Sens 21.8 25.4 B-Natriuretic Peptide 837 H Total Protein Albumin Lipase COVID-19 (MICHAEL) Negative COVID-19 Clin Com See Note 04/25/21 04/25/21 06:28 06:28 MCV 90.6 MCH 31.7 MCHC 35.0 RDW 12.8 Plt Count 173 MPV 8.6 L Immature Gran % (Auto) 0.3 Neut % (Auto) 49.8 Lymph % (Auto) 32.8 [place] % (Auto) 8.6 Eos % (Auto) 7.2 H Baso % (Auto) 1.3 Lymph # (Auto) 2.1 [place] # (Auto) 0.6 Eos # (Auto) 0.5 H Baso # (Auto) 0.1 Abs Immat Gran (auto) 0.02 Absolute Neuts (auto) 3.2 Absolute Nucleated RBC 0.000 Nucleated RBC % (auto) 0.0 PT INR D-Dimer Anion Gap 13 Estim Creat Clear Calc 53.3 Estimated GFR 45 Random Glucose 85 Calcium 8.1 L Magnesium Total Bilirubin Direct Bilirubin AST ALT Alkaline Phosphatase Troponin I High Sens B-Natriuretic Peptide Total Protein Albumin Lipase COVID-19 (MICHAEL) COVID-19 Clin Com Assessment and Plan (1) Acute on chronic systolic (congestive) heart failure: Status: Acute (2) NATIVIDAD (acute kidney injury): Status: Acute Assessment and Plan: This is a transgender female with past medical history of colon cancer, CHF with an ejection fraction of 35-40%, hyperlipidemia, schizoaffective disorder, anxiety and depression, who presents the hospital with complaints of shortness of breath, lower extremity swelling, as well as atypical left-sided chest pain.? Patient reports that all her symptoms started about 1 week ago.? Which she gained about 20 lb.? She reports swelling in her abdomen legs, but she has pain all over the body but more on the left side that is sharp radiating to the back and front, this started this morning, intermittent, about 7/10, exacerbated by deep breath.? Patient reports compliance with her Lasix 40 mg daily.? Patient also complains of orthopnea and PND Denies any palpitations, no cough, no sputum production, abdominal pain nausea or vomiting, no diarrhea constipation, and no urinary symptoms. 1. Acute exacerbation of CHF Appreciate cardiology input. Will continue IV Lasix as ordered and continue Entresto carvedilol and Imdur.. Patient well known to me; agree with Cardiology that complaints is the issue not new disease. If stable in a.m. [facility] 2. NATIVIDAD Creatinine mildly increased from baseline. Will check labs in a.m. after Lasix and adjust therapies as indicated 3. Nonischemic cardiomyopathy Extensive workup by Dr. Barrow; agree with Cardiology no further imaging just resume meds and follow thereafter DVT:lovenox Quality Stroke Does the patient have a stroke diagnosis?: No VTE Prior VTE?: No VTE Risk Level:: Medical - moderate - high VTE Device Contraindication: Treatment Not Indicated VTE Drug Contraindication: N/A - Med Ordered
[2021-04-25 19:21] LABS: B Type Natriuretic Peptide 597 pg/mL (<100)
[2021-04-25 19:33] VITALS: BP 101/51; PULSE 52; RESP 18; TEMP 36.6; O2SAT 90
[2021-04-25] MEDS: bisacodyL 5 MG TABLET.DR 10 MG PO (20:24)
[2021-04-25] MEDS: Sennosides 8.6 MG TABLET 17.2 MG PO (20:24)
[2021-04-25] MEDS: Sacubitril/Valsartan 24/26 1 TAB TABLET PO (20:25)
[2021-04-26] VITALS (11 sets, daily range): BP systolic 97–153; BP diastolic 42–68; PULSE 50–82; RESP 18–20; TEMP 36.3–36.7; O2SAT 92–98
[2021-04-26] MEDS: Morphine Sulfate 4 MG/ML CARTRIDGE IVPUSH ×3 (00:09→18:40)
[2021-04-26] MEDS: Sacubitril/Valsartan 24/26 1 TAB TABLET PO ×2 (09:28→21:05)
[2021-04-26] MEDS: Amiodarone HCL 200 MG TABLET 400 MG PO (09:28)
[2021-04-26] MEDS: 0.9 % Sodium Chloride Flush 3 ML SYRINGE IVFLUSH ×3 (09:29→21:08)
[2021-04-26] MEDS: carvediloL 25 MG TABLET PO ×2 (09:29→21:06)
[2021-04-26] MEDS: Atorvastatin Calcium 40 MG TABLET PO (09:29)
[2021-04-26] MEDS: diazePAM 2 MG TABLET PO ×3 (09:29→21:07)
[2021-04-26] MEDS: hydrOXYzine HCL 25 MG TABLET PO ×2 (09:29→21:06)
[2021-04-26] MEDS: Isosorbide Mononitrate 60 MG TAB.ER.24H PO (09:29)
[2021-04-26] MEDS: Furosemide 40 MG/4 ML VIAL IVPUSH ×2 (09:30→17:54)
--- NOTE | 2021-04-26 10:17 | PM.PNCARD ---
Subjective Subjective Date of Service: 04/26/21 Interval history: Complaints of left sided body pain- atypical; continues to complain of shortness of breath. Review of Systems Review of Systems Yes all other systems are reviewed and are negative Cardiovascular: Reports as per HPI, Reports no additional cardiovascular complaints, Denies acrocyanosis, Denies cool extremities, Denies painful fingertips, Reports chest pain, Reports chest pain at rest, Denies diaphoresis, Denies syncope, Denies irregular heart rhythm, Denies claudication, Denies leg edema, Denies lightheadedness, Denies palpitations and Reports dyspnea Respiratory: Reports dyspnea Denies syncope Endocrine: Denies palpitations Physical Exam Vital Signs: Last Vital Signs Temp 97.4 F 04/26/21 07:53 Pulse 57 04/26/21 09:29 Resp 20 04/26/21 07:53 BP 153/56 H 04/26/21 09:29 Pulse Ox 93 04/26/21 07:53 Body Mass Index 30.6 Const General: cooperative and no acute distress [facility] Other: Unremarkable Neck Neck: Yes normal visual inspection Chest Chest palpation & inspection: normal inspection of the chest Resp Auscultation: clear to auscultation bilaterally, no crackles and no wheezes Cardio Jugular venous distension: no JVD Palpation: normal PMI Heart sounds: S1 normal heart sound present, S2 normal heart sound present, no gallops, Murmur heart sound present (2/6 EDM aortic area) and no rubs GI Palpation (GI): Soft to palpation Back/Spine/Pelvis Other: unremarkable Skin General skin exam: no rashes or lesions noted Neuro Cranial nerves: Yes Other cranial nerve findings present Extrem General: Yes pedal edema (1+) Psych Mental Status: other Results Labs and Meds Result diagrams: 04/25/21 06:28 04/25/21 06:28 Lab results: Laboratory Results - last 24 hr 04/25/21 18:34 B-Natriuretic Peptide 597 H Progress Note: A&P Assessment and plan (1) Acute on chronic systolic (congestive) heart failure: Status: Acute (2) NICM (nonischemic cardiomyopathy): Status: Acute (3) Atypical chest pain: Status: Acute (4) PVC (premature ventricular contraction): Status: Acute Assessment and Plan: Previous cardiology documentation reviewed. Per echocardiogram in 2019, LVEF was 30-40%. There was mild to moderate aortic regurgitation. Aortic root measurement was 3.7 cm. Cardiac catheterization performed this year showed proximal LAD 30% stenosis but otherwise unremarkable. On review of the last office note from [facility] from February of this year, diagnosis was nonischemic cardiomyopathy. Per their note, it seems that patient had refused to have lab work done and hence there was a lot of difficulty in continuing medications like Entresto without knowing the renal function. Additionally, amiodarone was used primarily for suppressing the PVCs but again if lab work cannot be reliably followed, should not be using this either. For the time being, okay to try empiric IV diuretics. May stop amiodarone unless reliable outpatient follow-up. Same with Entresto. Chest pain itself is likely noncardiac and does not need any specific workup. Discussed plan with . Fall Risk Details Current Medications: Current Medications Acetaminophen (Acetaminophen 325 Mg Tablet) 650 mg PO Q6H PRN PRN Reason: Pain, Mild (Pain Scale 1-3) Albuterol/Ipratropium (Albuterol/Iprat 2.5/0.5mg 3 Ml Ampul.Neb) 3 ml INHALE RQ4H PRN PRN Reason: Shortness of Breath/Wheezing Alprazolam (Alprazolam 0.5 Mg Tablet) 1 mg PO BID PRN PRN Reason: Anxiety Last Admin: 04/25/21 12:08 Dose: 1 mg Documented by: Amiodarone HCl (Amiodarone Hcl 200 Mg Tablet) 400 mg PO DAILY [facility] Last Admin: 04/26/21 09:28 Dose: 400 mg Documented by: Atorvastatin Calcium (Atorvastatin Calcium 40 Mg Tablet) 40 mg PO DAILY [facility] Last Admin: 04/26/21 09:29 Dose: 40 mg Documented by: Bisacodyl (Bisacodyl 5 Mg Tablet.) 10 mg PO BEDTIME [facility] Last Admin: 04/25/21 20:24 Dose: 10 mg Documented by: Carvedilol (Carvedilol 25 Mg Tablet) 25 mg PO BID [facility]; Protocol Last Admin: 04/26/21 09:29 Dose: 25 mg Documented by: Diazepam (Diazepam 2 Mg Tablet) 2 mg PO TID [facility] Last Admin: 04/26/21 09:29 Dose: 2 mg Documented by: Docusate Sodium (Docusate Sodium 100 Mg Capsule) 100 mg PO DAILY PRN PRN Reason: Constipation Last Admin: 04/25/21 17:18 Dose: 100 mg Documented by: Enoxaparin Sodium (Enoxaparin Sodium 40 Mg/0.4 Ml Syringe) 40 mg SUBCUT Q24H [facility] Last Admin: 04/26/21 00:46 Dose: Not Given Documented by: Furosemide (Furosemide 40 Mg/4 Ml Vial) 40 mg IVPUSH BID@0900,1800 [facility]; Protocol Last Admin: 04/26/21 09:30 Dose: 40 mg Documented by: Hydroxyzine HCl (Hydroxyzine Hcl 25 Mg Tablet) 25 mg PO BID [facility] Last Admin: 04/26/21 09:29 Dose: 25 mg Documented by: Isosorbide Mononitrate (Isosorbide Mononitrate 60 Mg Tab.Er.24h) 60 mg PO DAILY [facility]; Protocol Last Admin: 04/26/21 09:29 Dose: 60 mg Documented by: Morphine Sulfate (Morphine Sulfate 4 Mg/Ml Cartridge) 4 mg IVPUSH Q4H PRN; Protocol PRN Reason: Pain, Severe (Pain Scale 7-10) Last Admin: 04/26/21 09:34 Dose: 4 mg Documented by: Ondansetron HCl (Ondansetron Hcl 4 Mg/2 Ml Vial) 4 mg IVPUSH Q8H PRN PRN Reason: Nausea and Vomiting Pharmacy Consult (Consult Rx Perform Med Rec) 1 each MISCELLANE ONCE PRN PRN Reason: Consult order Sacubitril/Valsartan (Sacubitril/Valsartan 1 Tab Tablet) 1 tab PO BID [facility]; Protocol Last Admin: 04/26/21 09:28 Dose: 1 tab Documented by: Senna (Sennosides 8.6 Mg Tablet) 17.2 mg PO BEDTIME [facility] Last Admin: 04/25/21 20:24 Dose: 17.2 mg Documented by: Sodium Chloride (0.9 % Sodium Chloride Flush 3 Ml Syringe) 3 ml IVFLUSH QSHIFT [facility] Last Admin: 04/26/21 09:29 Dose: 3 ml Documented by: Time Spent With Patient Time: Total time spent is greater than 50% in coordination of care (as documented) at patient's floor/unit and/or counseling patient: Time with patient: less than 15 minutes Progress Note: Quality Stroke Does the patient have a stroke diagnosis?: No Procedures Date of Service Date of Service: 04/26/21
[2021-04-26] MEDS: ALPRAZolam 0.5 MG TABLET 1 MG PO ×2 (10:28→21:04)
[2021-04-26] MEDS: Lactulose 20 GM/30 ML SOLUTION 30 GM PO (13:18)
--- NOTE | 2021-04-26 13:36 | HO.PM.IMPN ---
Subjective Subjective Date of Service: 04/26/21 Interval History: No acute issues overnight. Complaining of diffuse body pain along with mild shortness of breath with exertion Review of Systems Denies chest pain Denies shortness of breath at rest; mild shortness of breath with exertion Denies nausea vomiting diarrhea Physical Exam Vital Signs: Vital Signs: Last Vital Signs Temp 97.8 F 04/26/21 11:06 Pulse 54 04/26/21 11:06 Resp 20 04/26/21 11:06 BP 105/50 L 04/26/21 11:06 Pulse Ox 96 04/26/21 11:06 Body Mass Index 30.6 Const: Other: No acute issues overnight resting comfortably HENMT: Other: Membranes moist oropharynx clear Resp: Other: Scant rales bilateral bases otherwise clear to auscultation Cardio: Other: No S4 positive S1-S2 no S3 without murmurs or gallops GI: Other: Soft nontender nondistended with normoactive bowel sounds Neuro: Other: Cranial nerves 2-12 grossly intact as tested. Motor is 5/5 lower extremities sensation is intact Extrem: Other: 1+ edema Objective Data Active Medications Acetaminophen (Acetaminophen 325 Mg Tablet) 650 mg PO Q6H PRN PRN Reason: Pain, Mild (Pain Scale 1-3) Albuterol/Ipratropium (Albuterol/Iprat 2.5/0.5mg 3 Ml Ampul.Neb) 3 ml INHALE RQ4H PRN PRN Reason: Shortness of Breath/Wheezing Alprazolam (Alprazolam 0.5 Mg Tablet) 1 mg PO BID PRN PRN Reason: Anxiety Last Admin: 04/26/21 10:28 Dose: 1 mg Documented by: KESHA Amiodarone HCl (Amiodarone Hcl 200 Mg Tablet) 400 mg PO DAILY [facility] Last Admin: 04/26/21 09:28 Dose: 400 mg Documented by: KERVIN Atorvastatin Calcium (Atorvastatin Calcium 40 Mg Tablet) 40 mg PO DAILY [facility] Last Admin: 04/26/21 09:29 Dose: 40 mg Documented by: KERVIN Bisacodyl (Bisacodyl 5 Mg Tablet.) 10 mg PO BEDTIME [facility] Last Admin: 04/25/21 20:24 Dose: 10 mg Documented by: BITA Carvedilol (Carvedilol 25 Mg Tablet) 25 mg PO BID [facility]; Protocol Last Admin: 04/26/21 09:29 Dose: 25 mg Documented by: KERVIN Diazepam (Diazepam 2 Mg Tablet) 2 mg PO TID [facility] Last Admin: 04/26/21 09:29 Dose: 2 mg Documented by: KERVIN Docusate Sodium (Docusate Sodium 100 Mg Capsule) 100 mg PO DAILY PRN PRN Reason: Constipation Last Admin: 04/25/21 17:18 Dose: 100 mg Documented by: LOREN Enoxaparin Sodium (Enoxaparin Sodium 40 Mg/0.4 Ml Syringe) 40 mg SUBCUT Q24H [facility] Last Admin: 04/26/21 00:46 Dose: Not Given Documented by: BITA Non-Admin Reason: Patient Refused Furosemide (Furosemide 40 Mg/4 Ml Vial) 40 mg IVPUSH BID@0900,1800 [facility]; Protocol Last Admin: 04/26/21 09:30 Dose: 40 mg Documented by: KERVIN Hydroxyzine HCl (Hydroxyzine Hcl 25 Mg Tablet) 25 mg PO BID [facility] Last Admin: 04/26/21 09:29 Dose: 25 mg Documented by: KERVIN Isosorbide Mononitrate (Isosorbide Mononitrate 60 Mg Tab.Er.24h) 60 mg PO DAILY [facility]; Protocol Last Admin: 04/26/21 09:29 Dose: 60 mg Documented by: KERVIN Lactulose (Lactulose 20 Gm/30 Ml Solution) 30 gm PO Q24H [facility] Last Admin: 04/26/21 13:18 Dose: 30 gm Documented by: KESHA Morphine Sulfate (Morphine Sulfate 4 Mg/Ml Cartridge) 4 mg IVPUSH Q4H PRN; Protocol PRN Reason: Pain, Severe (Pain Scale 7-10) Last Admin: 04/26/21 09:34 Dose: 4 mg Documented by: KERVIN Ondansetron HCl (Ondansetron Hcl 4 Mg/2 Ml Vial) 4 mg IVPUSH Q8H PRN PRN Reason: Nausea and Vomiting Pharmacy Consult (Consult Rx Perform Med Rec) 1 each MISCELLANE ONCE PRN PRN Reason: Consult order Sacubitril/Valsartan (Sacubitril/Valsartan 1 Tab Tablet) 1 tab PO BID [facility]; Protocol Last Admin: 04/26/21 09:28 Dose: 1 tab Documented by: KERVIN Senna (Sennosides 8.6 Mg Tablet) 17.2 mg PO BEDTIME [facility] Last Admin: 04/25/21 20:24 Dose: 17.2 mg Documented by: BITA Sodium Chloride (0.9 % Sodium Chloride Flush 3 Ml Syringe) 3 ml IVFLUSH QSHIFT [facility] Last Admin: 04/26/21 09:29 Dose: 3 ml Documented by: KERVIN Labs CBC & Chem 7: 04/25/21 06:28 04/25/21 06:28 Labs: Laboratory Results - last 24 hr 04/25/21 18:34 B-Natriuretic Peptide 597 H Assessment and Plan (1) NICM (nonischemic cardiomyopathy): Status: Acute (2) Acute on chronic systolic (congestive) heart failure: Status: Acute (3) NATIVIDAD (acute kidney injury): Status: Acute Assessment and Plan: This is a transgender female with past medical history of colon cancer, CHF with an ejection fraction of 35-40%, hyperlipidemia, schizoaffective disorder, anxiety and depression, who presents the hospital with complaints of shortness of breath, lower extremity swelling, as well as atypical left-sided chest pain.? Patient reports that all her symptoms started about 1 week ago.? Which she gained about 20 lb.? She reports swelling in her abdomen legs, but she has pain all over the body but more on the left side that is sharp radiating to the back and front, this started this morning, intermittent, about 7/10, exacerbated by deep breath.? Patient reports compliance with her Lasix 40 mg daily.? Patient also complains of orthopnea and PND that has not responded to IV Lasix. 1. Acute exacerbation of CHF Appreciate cardiology input. Will continue IV Lasix as ordered and continue Entresto carvedilol and Imdur.. Examines fluid positive; will treat with IV diuresis 24 hours and reassess 2. NATIVIDAD Creatinine mildly increased from baseline. Will check labs in a.m. after Lasix and adjust therapies as indicated 3. Nonischemic cardiomyopathy Extensive workup by Dr. Barrow; agree with Cardiology no further imaging just resume meds and follow thereafter DVT:lovenox Quality Stroke Does the patient have a stroke diagnosis?: No VTE Prior VTE?: No VTE Risk Level:: Medical - moderate - high VTE Device Contraindication: Treatment Not Indicated VTE Drug Contraindication: N/A - Med Ordered
--- NOTE | 2021-04-26 14:01 | MHC.CM.PN ---
PER MD ROUNDS, PT EXPECTED TO BE CLEARED FOR DC TOMORROW UPDATES SENT TO [facility] WHERE PT WILL RETURN VIA BLS AT DC
[2021-04-26] MEDS: Acetaminophen 325 MG TABLET 650 MG PO (14:44)
[2021-04-26] MEDS: Sennosides 8.6 MG TABLET 17.2 MG PO (21:01)
[2021-04-26] MEDS: bisacodyL 5 MG TABLET.DR 10 MG PO (21:01)
[2021-04-26] MEDS: ondansetron HCL 4 MG/2 ML VIAL IVPUSH (22:41)
[2021-04-27] VITALS (8 sets, daily range): BP systolic 90–161; BP diastolic 38–71; PULSE 50–80; RESP 16–20; TEMP 36.1–37.1; O2SAT 91–98
[2021-04-27] MEDS: carvediloL 25 MG TABLET PO (09:32)
[2021-04-27] MEDS: Amiodarone HCL 200 MG TABLET 400 MG PO (09:32)
[2021-04-27] MEDS: ALPRAZolam 0.5 MG TABLET 1 MG PO ×2 (09:32→20:59)
[2021-04-27] MEDS: Isosorbide Mononitrate 60 MG TAB.ER.24H PO (09:32)
[2021-04-27] MEDS: Atorvastatin Calcium 40 MG TABLET PO (09:32)
[2021-04-27] MEDS: Sacubitril/Valsartan 24/26 1 TAB TABLET PO ×2 (09:32→20:50)
[2021-04-27] MEDS: hydrOXYzine HCL 25 MG TABLET PO ×2 (09:32→20:50)
[2021-04-27] MEDS: ondansetron HCL 4 MG/2 ML VIAL IVPUSH (09:33)
[2021-04-27] MEDS: diazePAM 2 MG TABLET PO ×3 (09:33→20:59)
[2021-04-27] MEDS: Furosemide 40 MG/4 ML VIAL IVPUSH (09:33)
[2021-04-27] MEDS: 0.9 % Sodium Chloride Flush 3 ML SYRINGE IVFLUSH ×3 (09:37→20:52)
[2021-04-27 10:18] LABS: MANUAL DIFF FLAG NO
[2021-04-27 10:22] LABS: Basophils Absolute Auto 0.1 X10*3/uL (0.0-0.2); Basophils Percent Auto 0.7 % (0-2); Eosinophils Absolute Auto 0.4 X10*3/uL (0.0-0.4); Eosinophils Percent Auto 5.3 % (0-4); Hematocrit 41.2 % (42-52); Hemoglobin 14.5 g/dl (14.0-18.0); Imm Gran Abs Auto 0.03 X10*3/uL (0.00-0.03); Imm Gran Pct Auto 0.4 % (0.0-0.4); Lymphocytes Absolute Auto 1.8 X10*3/uL (1.2-4.9); Lymphocytes Percent Auto 26.3 % (20-40); Mean Corpuscular HGB Conc 35.2 g/dl (31.0-36.0); Mean Corpuscular Hemoglobin 31.7 pg (27.0-33.0); Mean Platelet Volume 8.9 fL (9.4-12.4); Monocytes Absolute Auto 0.6 X10*3/uL (0.1-1.2); Monocytes Percent Auto 9.2 % (2-11); Neutrophils Percent Auto 58.1 % (45-73); Platelet Count 190 X10*3/uL (160-400); Red Blood Count 4.58 X10*6/uL (4.60-5.80); Red Cell Distribution Width 12.7 % (11.0-16.0)
[2021-04-27 10:44] LABS: B Type Natriuretic Peptide 158 pg/mL (<100)
[2021-04-27 11:06] LABS: Alanine Aminotransferase 48 U/L (0-40); Albumin Level 4.2 g/dL (3.5-5.0); Alkaline Phosphatase 90 U/L (39-117); Anion Gap 13 (12-20); Aspartate Amino Transferase 32 U/L (5-37); Bilirubin Total 0.5 mg/dL (0.0-1.0); Blood Urea Nitrogen 31 mg/dL (9-16); Calcium 8.6 mg/dL (8.4-10.2); Carbon Dioxide 25 mmol/L (22-29); Chloride 103 mmol/L (96-108); Creatinine Clr Calc Pharmacy 36.4; Estimated Glomerular Filt Rate 30; Glucose Random 85 mg/dL (60-115); Potassium 3.5 mmol/L (3.3-5.1); Sodium 137 mmol/L (135-145); Total Protein 7.5 g/dL (6.5-8.0)
--- NOTE | 2021-04-27 12:59 | MHC.CM.PN ---
per rounds pt may be dcd today to let cm know plan is for pt to [facility]
--- NOTE | 2021-04-27 14:26 | P.PNIM_ITS ---
Subjective Subjective Date of Service: 04/27/21 Interval History: No acute issues overnight. Complaining of diffuse body pain along with mild shortness of breath with exertion; leg edema improved Review of Systems Denies chest pain Denies shortness of breath at rest; mild shortness of breath with exertion Denies nausea vomiting diarrhea Physical Exam Vital Signs: Vital Signs: Last Vital Signs Temp 98.7 F 04/27/21 12:00 Pulse 61 04/27/21 12:00 Resp 16 04/27/21 12:00 BP 148/62 H 04/27/21 12:00 Pulse Ox 97 04/27/21 12:00 Body Mass Index 30.6 Const: Other: No acute issues overnight resting comfortably HENMT: Other: Membranes moist oropharynx clear Resp: Other: Scant rales bilateral bases otherwise clear to auscultation Cardio: Other: No S4 positive S1-S2 no S3 without murmurs or gallops GI: Other: Soft nontender nondistended with normoactive bowel sounds Neuro: Other: Cranial nerves 2-12 grossly intact as tested. Motor is 5/5 lower extremities sensation is intact Extrem: Other: 1+ edema Objective Data Active Medications Acetaminophen (Acetaminophen 325 Mg Tablet) 650 mg PO Q6H PRN PRN Reason: Pain, Mild (Pain Scale 1-3) Last Admin: 04/26/21 14:44 Dose: 650 mg Documented by: KERVIN Albuterol/Ipratropium (Albuterol/Iprat 2.5/0.5mg 3 Ml Ampul.Neb) 3 ml INHALE RQ4H PRN PRN Reason: Shortness of Breath/Wheezing Alprazolam (Alprazolam 0.5 Mg Tablet) 1 mg PO BID PRN PRN Reason: Anxiety Last Admin: 04/27/21 09:32 Dose: 1 mg Documented by: KESHA Amiodarone HCl (Amiodarone Hcl 200 Mg Tablet) 400 mg PO DAILY [facility] Last Admin: 04/27/21 09:32 Dose: 400 mg Documented by: KESHA Atorvastatin Calcium (Atorvastatin Calcium 40 Mg Tablet) 40 mg PO DAILY [facility] Last Admin: 04/27/21 09:32 Dose: 40 mg Documented by: KESHA Bisacodyl (Bisacodyl 5 Mg Tablet.) 10 mg PO BEDTIME [facility] Last Admin: 04/26/21 21:01 Dose: 10 mg Documented by: BITA Carvedilol (Carvedilol 25 Mg Tablet) 25 mg PO BID [facility]; Protocol Last Admin: 04/27/21 09:32 Dose: 25 mg Documented by: KESHA Diazepam (Diazepam 2 Mg Tablet) 2 mg PO TID [facility] Last Admin: 04/27/21 09:33 Dose: 2 mg Documented by: KESHA Docusate Sodium (Docusate Sodium 100 Mg Capsule) 100 mg PO DAILY PRN PRN Reason: Constipation Last Admin: 04/25/21 17:18 Dose: 100 mg Documented by: LOREN Enoxaparin Sodium (Enoxaparin Sodium 40 Mg/0.4 Ml Syringe) 40 mg SUBCUT Q24H [facility] Last Admin: 04/27/21 00:09 Dose: Not Given Documented by: BITA Non-Admin Reason: Patient Refused Furosemide (Furosemide 40 Mg/4 Ml Vial) 40 mg IVPUSH BID@0900,1800 [facility]; Protocol Last Admin: 04/27/21 09:33 Dose: 40 mg Documented by: KESHA Hydroxyzine HCl (Hydroxyzine Hcl 25 Mg Tablet) 25 mg PO BID [facility] Last Admin: 04/27/21 09:32 Dose: 25 mg Documented by: KESHA Isosorbide Mononitrate (Isosorbide Mononitrate 60 Mg Tab.Er.24h) 60 mg PO DAILY [facility]; Protocol Last Admin: 04/27/21 09:32 Dose: 60 mg Documented by: KESHA Lactulose (Lactulose 20 Gm/30 Ml Solution) 30 gm PO Q24H [facility] Last Admin: 04/26/21 13:18 Dose: 30 gm Documented by: KESHA Morphine Sulfate (Morphine Sulfate 4 Mg/Ml Cartridge) 4 mg IVPUSH Q4H PRN; Protocol PRN Reason: Pain, Severe (Pain Scale 7-10) Last Admin: 04/26/21 18:40 Dose: 4 mg Documented by: KERVIN Ondansetron HCl (Ondansetron Hcl 4 Mg/2 Ml Vial) 4 mg IVPUSH Q8H PRN PRN Reason: Nausea and Vomiting Last Admin: 04/27/21 09:33 Dose: 4 mg Documented by: KESHA Pharmacy Consult (Consult Rx Perform Med Rec) 1 each MISCELLANE ONCE PRN PRN Reason: Consult order Sacubitril/Valsartan (Sacubitril/Valsartan 1 Tab Tablet) 1 tab PO BID [facility]; Protocol Last Admin: 04/27/21 09:32 Dose: 1 tab Documented by: KESHA Senna (Sennosides 8.6 Mg Tablet) 17.2 mg PO BEDTIME [facility] Last Admin: 04/26/21 21:01 Dose: 17.2 mg Documented by: BITA Sodium Chloride (0.9 % Sodium Chloride Flush 3 Ml Syringe) 3 ml IVFLUSH QSHIFT [facility] Last Admin: 04/27/21 09:37 Dose: 3 ml Documented by: KESHA Labs CBC & Chem 7: 04/27/21 09:58 04/27/21 09:58 Labs: Laboratory Results - last 24 hr 04/27/21 04/27/21 04/27/21 09:58 09:58 09:58 MCV 90.0 MCH 31.7 MCHC 35.2 RDW 12.7 Plt Count 190 MPV 8.9 L Immature Gran % (Auto) 0.4 Neut % (Auto) 58.1 Lymph % (Auto) 26.3 Crenshaw % (Auto) 9.2 Eos % (Auto) 5.3 H Baso % (Auto) 0.7 Lymph # (Auto) 1.8 [place]shaw # (Auto) 0.6 Eos # (Auto) 0.4 Baso # (Auto) 0.1 Abs Immat Gran (auto) 0.03 Absolute Neuts (auto) 4.0 Absolute Nucleated RBC 0.000 Nucleated RBC % (auto) 0.0 Anion Gap 13 Estim Creat Clear Calc 36.4 Estimated GFR 30 Random Glucose 85 Calcium 8.6 D Total Bilirubin 0.5 AST 32 ALT 48 H Alkaline Phosphatase 90 D B-Natriuretic Peptide 158 H Total Protein 7.5 Albumin 4.2 Assessment and Plan (1) NICM (nonischemic cardiomyopathy): Status: Acute (2) NATIVIDAD (acute kidney injury): Status: Acute (3) Atypical chest pain: Status: Acute Assessment and Plan: This is a transgender female with past medical history of colon cancer, CHF with an ejection fraction of 35-40%, hyperlipidemia, schizoaffective disorder, anxiety and depression, who presents the hospital with complaints of shortness of breath, lower extremity swelling, as well as atypical left-sided chest pain.? Patient reports that all her symptoms started about 1 week ago.? Which she gained about 20 lb.? She reports swelling in her abdomen legs, but she has pain all over the body but more on the left side that is sharp radiating to the back and front, this started this morning, intermittent, about 7/10, exacerbated by deep breath.? Patient reports compliance with her Lasix 40 mg daily.? Patient also complains of orthopnea and PND that has not responded to IV Lasix. 1. Acute exacerbation of CHF Appreciate cardiology input. Will D/C lasix and continue Entresto carvedilol and Imdur.. 2. NATIVIDAD Creatinine mildly increased from baseline.D/c lasix and recheck labs in am 3. Nonischemic cardiomyopathy Extensive workup by Dr. Barrow; agree with Cardiology no further imaging just resume meds and follow thereafter DVT:lovenox Quality Stroke Does the patient have a stroke diagnosis?: No VTE Prior VTE?: No VTE Risk Level:: Medical - moderate - high VTE Device Contraindication: Treatment Not Indicated VTE Drug Contraindication: N/A - Med Ordered
[2021-04-27] MEDS: Lactulose 20 GM/30 ML SOLUTION 30 GM PO (16:12)
[2021-04-28 04:00] VITALS: BP 141/54; PULSE 55; RESP 18; O2SAT 95
[2021-04-28 07:21] VITALS: BP 170/76; PULSE 72; RESP 20; TEMP 36.6; O2SAT 97
[2021-04-28 10:19] VITALS: BP 170/76; PULSE 72
[2021-04-28] MEDS: carvediloL 25 MG TABLET PO ×2 (10:19→20:08)
[2021-04-28] MEDS: Isosorbide Mononitrate 60 MG TAB.ER.24H PO (10:19)
[2021-04-28] MEDS: hydrOXYzine HCL 25 MG TABLET PO ×2 (10:20→20:08)
[2021-04-28] MEDS: Atorvastatin Calcium 40 MG TABLET PO (10:20)
[2021-04-28] MEDS: Sacubitril/Valsartan 24/26 1 TAB TABLET PO ×2 (10:20→20:08)
[2021-04-28 10:21] VITALS: BP 170/76; PULSE 72
[2021-04-28] MEDS: Amiodarone HCL 200 MG TABLET PO (10:21)
[2021-04-28] MEDS: diazePAM 2 MG TABLET PO ×3 (10:23→20:07)
[2021-04-28] MEDS: 0.9 % Sodium Chloride Flush 3 ML SYRINGE IVFLUSH (10:25)
[2021-04-28] MEDS: ALPRAZolam 0.5 MG TABLET 1 MG PO ×2 (10:29→20:07)
[2021-04-28 12:00] VITALS: TEMP 36.6
--- NOTE | 2021-04-28 12:44 | P.DS_ITS ---
DS: Providers Provider Date of Service: 04/28/21 Date of admission: 04/24/21 23:21 Date of discharge: 04/28/21 Primary care physician: Dung España DO Consults: 04/24/21 23:37 Consult to Cardiology Routine Consulting Provider: Parminder Davidson Reason for consultation: chf Has provider been notified: No DS: Diagnosis Discharge Diagnosis (1) NICM (nonischemic cardiomyopathy): Status: Acute (2) NATIVIDAD (acute kidney injury): Status: Acute (3) Atypical chest pain: Status: Acute DS: Summary Hospital Course Hospital Course: 65-year-old transgender male presents from [facility] with complaints of chest pain shortness of breath and a 20 lb weight gain. When verified a [facility] his weight gain has been negligible. He has a history a of noncompliance. He initially was admitted with an elevated BNP for which cardiac consult was obtained. Cardiac consult: Patient of [facility].? Last ejection fraction for 2019 was 30- 40%.? Patient has also undergone a diagnostic catheterization that showed no significant coronary disease.? It seems that patient has had several admissions for chest pains in the past.? Current admission is again for shortness of breath, leg swelling and atypical left-sided chest pain.? Pain is very atypical as it is present all over the body on the left side including legs. Hospital course: Patient admitted; mild renal insufficiency above baseline although patient has had no recent labs a [facility] due to noncompliance. With diuresed aggressively with mild elevation of creatinine however on the day of discharge refused all labs. At this point in time will be transferring back to [facility]; amiodarone will be taper to off and other meds DC based on his compliance with labs. On the day of discharge he is medically stable however unwilling to return. He will be return to [facility] . Time Spent with Patient Time attestation: Total time spent providing and/or coordinating discharge services: Discharge coordination time: Greater than 30 minutes Quality: Stroke Does the patient have a stroke diagnosis?: No Physical Exam Vital Signs: Vital Signs: Last Vital Signs Temp 98 F 04/28/21 07:21 Pulse 72 04/28/21 10:21 Resp 20 04/28/21 07:21 BP 170/76 H 04/28/21 10:21 Pulse Ox 97 04/28/21 07:21 Body Mass Index 30.6 Const: Other: No acute issues overnight resting comfortably HENMT: Other: Membranes moist oropharynx clear Cardio: Other: No S4 positive S1-S2 no S3 without murmurs or gallops GI: Other: Soft nontender nondistended with normoactive bowel sounds Neuro: Other: Cranial nerves 2-12 grossly intact as tested. Motor is 5/5 lower extremities sensation is intact Extrem: Other: 1+ edema Discharge Plan Discharge Patient Disposition: er Inpatient Rehab Fac Discharge Diagnosis: NATIVIDAD Referrals: [facility] [Outside] - 1 Week Dung España DO [Primary Care Provider] - 1 Week Discharge Medications: New amiodarone 200 mg Tablet 200 mg PO DAILY Qty: 30 RF: 0 Continued furosemide 40 mg tablet 1 tab PO DAILY RF: 0 atorvastatin 40 mg tablet 1 tab PO DAILY RF: 0 carvedilol 25 mg tablet 1 tab PO BID RF: 0 alprazolam 1 mg tablet 1 tab PO BID PRN (Reason: Anxiety) RF: 0 isosorbide mononitrate 60 mg tablet extended release 24 hr 1 tab PO DAILY RF: 0 diazepam 2 mg tablet 1 tab PO TID RF: 0 hydroxyzine HCl 25 mg tablet 1 tab PO BID RF: 0 Entresto 24-26 mg tablet 1 tab PO BID RF: 0 Discontinued amiodarone 400 mg tablet 1 tab PO DAILY RF: 0 Discharge Orders: Discharge Order (Routine); Ordered 04/28/21 Ordered By: Dung España Diet: advance to usual diet Activity on Discharge: As tolerated Stand Alone Forms: Patient Portal Discharge page Care Plan Goals: Compliance with therapies Health Concerns: Compliance Plan of Treatment: As per care 1 Assessment: Improved
--- NOTE | 2021-04-28 13:37 | MHC.CM.PN ---
Addendum entered by Tish Doll 04/28/21 13:43: DC SUMMARY FAXED Original Note: PT IS MEDICALLY CLEARED FOR DC BACK TO [facility] [place] TODAY. CM SENT UPDATES VIA [employer] HOWEVER THERE WAS NO RESPONSE. CM CONTACTED [facility] VIA T/C ([phone]) AND SPOKE TO THE NURSING STANDARD MACHINE STITCHER WHO REPORTED A 1400 HR DC WAS AGREEABLE. CM WILL FAX DC SUMMARY TO THE NUMBER PROVIDED [phone]. CM INFORMED NURSING REPORT SHOULD BE GIVEN TO [facility], INFO RELAYED TO PTS RN A VM MESSAGE WAS ALSO LEFT FOR PTS CM WITH THE STATE [facility], JAMARI [phone], INFORMING HER OF DC.
[2021-04-28] MEDS: oxyCODONE HCl Immed Release 5 MG TABLET PO (17:49)
[2021-04-28] MEDS: Sennosides 8.6 MG TABLET 17.2 MG PO (20:07)
[2021-04-28] MEDS: bisacodyL 5 MG TABLET.DR 10 MG PO (20:08)
== END 2021-04-28 20:26 | DRG 682 ==
LOC: HO.ED 22:09 → HO.EDOVER 23:43 → HO.IMC 04-25 14:58
PROVIDERS: Nurse Practitioner Family; Admitting Provider Internal Medicine; Emergency Provider Emergency Medicine; PCP Hospitalist; Visit Provider Hospitalist
DX: N17.9 Acute kidney failure, unspecified (principal); I50.23 Acute on chronic systolic (congestive) heart failure; I42.8 Other cardiomyopathies; R07.89 Other chest pain; I49.3 Ventricular premature depolarization; Z20.822 Contact with and (suspected) exposure to COVID-19; Z91.19 Patient's noncompliance with other medical treatment and regimen; Z79.899 Other long term (current) drug therapy; F64.0 Transsexualism
CPT/HCPCS: 36415; 71046; 78580; 80048; 80053; 80076; 83690; 83735; 83880; 84484; 85025; 85379; 85610; 87635; 93005; 93970; 96374; 99285; A9540; J1940; J2270; J2405

== ENCOUNTER 2021-09-16 00:11 | Emergency (ER) | payer MEDICARE, MEDICAID, SELFPAY ==
--- NOTE | 2021-09-16 | ECG_ITS ---
Test Reason : CHEST PAIN Blood Pressure : / mmHG Vent. Rate : 067 BPM Atrial Rate : 067 BPM P-R Int : 208 ms QRS Dur : 172 ms QT Int : 490 ms P-R-T Axes : 039 -34 -10 degrees QTc Int : 517 ms Sinus rhythm with occasional Premature ventricular complexes Left axis deviation Right bundle branch block Minimal voltage criteria for LVH, may be normal variant ( R in aVL ) Abnormal ECG When compared to the previous EKG of No significant changes seen Referred By: Rachell Quiros Electronically Signed By:JUSTYN JOHNSON MD
--- NOTE | ~2021-09-16 | NM_ITS ---
EXAMINATION: WI LUNG IMAGE PERFUSION CLINICAL INFORMATION: Left-sided chest pain, hypertension. COMPARISON: Chest x-ray 09/16/2021 at 1:07 AM TECHNIQUE: Following intravenous administration of 4 mCi of 99m technetium MAA, imaging of both lungs were obtained in multiple projections. Ventilation study was not performed. FINDINGS: On perfusion imaging there is no segmental or subsegmental defect. There is normal cardiac related nonsegmental defect in the lingula. On chest x-ray there is moderate cardiomegaly. WI/WI pul perfusion IMPRESSION: Normal perfusion scan with no focal defect. Cardiomegaly.
--- NOTE | ~2021-09-16 | XR_ITS ---
EXAMINATION: XR CHEST CLINICAL INFORMATION: Shortness of breath COMPARISON: 04/24/2021 TECHNIQUE: Frontal view of the chest was obtained. FINDINGS: Lung volumes are symmetric. Linear right basilar atelectasis versus scarring is redemonstrated. No acute consolidation is seen. No evidence of pneumothorax, significant pleural effusion, or overt pulmonary edema. Cardiac silhouette remains enlarged. No acute osseous findings are seen. XR/XR chest 1V IMPRESSION: No acute pulmonary findings. Enlarged cardiac silhouette.
[2021-09-16 00:17] VITALS: BP 150/83; BP 169/61; PULSE 68; PULSE 85; RESP 18; TEMP 36.9; O2SAT 96; O2SAT 97; BMI 33.4
--- NOTE | 2021-09-16 00:33 | ECG_ITS ---
Test Reason : CHEST PAIN Blood Pressure : / mmHG Vent. Rate : 068 BPM Atrial Rate : 068 BPM P-R Int : 214 ms QRS Dur : 170 ms QT Int : 490 ms P-R-T Axes : 044 -39 -26 degrees QTc Int : 521 ms Sinus rhythm with 1st degree A-V block with occasional Premature ventricular complexes Left axis deviation Right bundle branch block Minimal voltage criteria for LVH, may be normal variant ( R in aVL ) Abnormal ECG When compared with ECG of 16-SEP-2021 00:34, No significant change was found Referred By: Rachell Quiros Electronically Signed By:JUSTYN JOHNSON MD
--- NOTE | 2021-09-16 00:46 | ED.CHESTPAIN ---
HPI - Chest Pain General Chief Complaint: Chest Pain <Rachell Quiros MD - Last Filed: 09/16/21 00:48> Stated Complaint: chest pain <Rachell Quiros MD - Last Filed: 09/16/21 00:48> Time Seen by Provider: 09/16/21 00:31 <Rachell Quiros MD - Last Filed: 09/16/21 00:48> History of Present Illness HPI narrative: patient is a 66-year-old male with a history of nonischemic cardiomyopathy history of coronary artery disease. Patient had a catheterization done 2 years ago that showed a 30% lesion in the LAD. Positive history of hypertension. Positive history of high cholesterol. Presented today with having chest pain over the left side worse with movement very similar to previous bouts of chest pain. Patient denies any diaphoresis. Patient is biologically a male. Been compliant with his medication. [facility] reported patient has homicidal ideations. Patient has a long psychiatric history <Rachell Quiros MD - Last Filed: 09/16/21 00:48> Related Data Home Medications: Home Medications Medication Instructions Recorded Confirmed alprazolam 1 mg tablet 1 tab PO BID PRN 04/24/21 04/24/21 atorvastatin 40 mg tablet 1 tab PO DAILY 04/24/21 04/24/21 carvedilol 25 mg tablet 1 tab PO BID 04/24/21 04/24/21 diazepam 2 mg tablet 1 tab PO TID 04/24/21 04/24/21 furosemide 40 mg tablet 1 tab PO DAILY 04/24/21 04/24/21 hydroxyzine HCl 25 mg tablet 1 tab PO BID 04/24/21 04/24/21 isosorbide mononitrate 60 mg 1 tab PO DAILY 04/24/21 04/24/21 tablet,extended release 24 hr sacubitril 24 mg-valsartan 26 mg 1 tab PO BID 04/24/21 04/24/21 tablet (Entresto) Previous Rx's Medication Instructions Recorded amiodarone 200 mg tablet 200 mg PO DAILY #30 tab 04/28/21 <Rachell Quiros MD - Last Filed: 09/16/21 00:48> Allergies/Adverse Reactions: Allergies Allergy/AdvReac Type Severity Reaction Status Date / Time No Known Allergies Allergy Unverified 03/23/20 19:45 [No Known Allergies*] <Rachell Quiros MD - Last Filed: 09/16/21 00:48> Review of Systems Review of Systems: positive chest pain no fever no chills no vomiting no diarrhea no diaphoresis all system reviewed otherwise negative <Rachell Quiros MD - Last Filed: 09/16/21 00:48> [facility] Past Medical History Attestation statement: The following information was validated with the patient. <Rachell Quiros MD - Last Filed: 09/16/21 00:48> Medical History: Medical History CHF (congestive heart failure) Colon cancer Hypertension Schizoaffective disorder <Rachell Quiros MD - Last Filed: 09/16/21 00:48> Social History Social History: Social History Household Members: Other Housing: Longterm Do you presently have visiting nurse or other home services: No Alcohol intake: never Patient Tobacco Use Status: Never used Tobacco Use of substances other than those prescribed or required for medical reasons: No Advance Directives: No service: No Current occupational status: disabled <Rachell Quiros MD - Last Filed: 09/16/21 00:48> Physical Exam Vital Signs: Vital Signs: Last Vital Signs Temp 97.8 F 09/16/21 10:29 Pulse 98 09/16/21 10:29 Resp 18 09/16/21 10:29 BP 162/71 H 09/16/21 10:29 Pulse Ox 98 09/16/21 10:29 BMI result Body Mass Index 33.4 Appearance: Alert. Oriented X3. No acute distress. Eyes: Pupils equal, round and reactive to light. ENT: Pharynx normal. Neck: Normal inspection. Neck supple. No lymph nodes noted. No crepitus CVS: Normal heart rate and rhythm. Pulses normal. Normal S1 and S2 Respiratory: No respiratory distress. Breath sounds normal. No Wheezing. No rales Abdomen: Soft and nontender. No rigidity. No distention. good BS x4 Skin: Skin warm and dry. Normal skin color. Normal skin turgor. Extremities: No lower extremity edema. Neurovascular intact to all extremities. No Lacerations. No Rash Neuro: Oriented X 3. No motor deficit. No sensory deficit. Moving all extermities. No slurred speech <Rachell Quiros MD - Last Filed: 09/16/21 00:48> Vital Signs: Last Vital Signs Temp 97.8 F 09/16/21 10:29 Pulse 98 09/16/21 10:29 Resp 18 09/16/21 10:29 BP 162/71 H 09/16/21 10:29 Pulse Ox 98 09/16/21 10:29 BMI result Body Mass Index 33.4 <Nicci Ordaz MD - Last Filed: 09/16/21 06:50> Vital Signs: Last Vital Signs Temp 97.8 F 09/16/21 10:29 Pulse 98 09/16/21 10:29 Resp 18 09/16/21 10:29 BP 162/71 H 09/16/21 10:29 Pulse Ox 98 09/16/21 10:29 BMI result Body Mass Index 33.4 <Aguila Chan MD - Last Filed: 09/16/21 13:24> Course Course Course Narrative: I received sign-out from Dr. Quiros Patient has not complained of any chest pain. 05:30 patient is refusing the 2nd troponin. Patient waiting for her V/Q scan in the morning. PT needs [facility] for HI Sign-out given to Dr. Chan <Nicci Ordaz MD - Last Filed: 09/16/21 06:50> Reevaluation(s) Reevaluation #1: 66-year-old biologically male transgender to a female came in with chest pain which was nonspecific however patient had unremarkable workup including 2 highly sensitive troponin negative because slight elevation D-dimer and abnormal BUN creatinine patient had a V/Q scan which was normal with no PE. HEART score is 3. Patient was fully evaluated by N [facility] some homicidal statements to 1 of the staff there, patient now is decline no SI or HI or hallucination, patient is awake, alert, oriented x3, normal mental exam showing no indication for inpatient psych admission especially patient living care [facility] which is local [facility] psych facility. We will discharge the patient back to [facility] will arrange for transportation. <Aguila Chan MD - Last Filed: 09/16/21 13:24> Time: 13:17 <Aguila Chan MD - Last Filed: 09/16/21 13:24> MDM - Chest Pain Lab Data Result diagrams: : 09/16/21 01:00 09/16/21 01:00 <Rachell Quiros MD - Last Filed: 09/16/21 00:48> Labs: Lab Results 09/16/21 09/16/21 09/16/21 Range/Units 01:00 01:00 01:00 WBC 6.9 (4.8-10.8) X10*3/uL RBC 4.53 L (4.60-5.80) X10*6/uL Hgb 14.0 (14.0-18.0) g/dl Hct 41.3 L (42.0-52.0) % MCV 91.2 (80.0-98.0) fL MCH 30.9 (27.0-33.0) pg MCHC 33.9 (31.0-36.0) g/dl RDW 12.7 (11.0-16.0) % Plt Count 257 (160-400) X10*3/uL MPV 8.4 L (9.4-12.4) fL Immature Gran % (Auto) 0.4 (0.0-0.4) % Neut % (Auto) 54.5 (45-73) % Lymph % (Auto) 30.8 (20-40) % Haines % (Auto) 8.2 (2-11) % Eos % (Auto) 5.2 H (0-4) % Baso % (Auto) 0.9 (0-2) % Lymph # (Auto) 2.1 (1.2-4.9) X10*3/uL Haines # (Auto) 0.6 (0.1-1.2) X10*3/uL Eos # (Auto) 0.4 (0.0-0.4) X10*3/uL Baso # (Auto) 0.1 (0.0-0.2) X10*3/uL Abs Immat Gran (auto) 0.03 (0.00-0.03) X10*3/uL Absolute Neuts (auto) 3.8 (2.0-8.3) x10*3/uL Absolute Nucleated RBC 0.000 (0.0-0.012) X10*3/uL Nucleated RBC % (auto) 0.0 (0.0-0.2) /100WBC D-Dimer High Sensitivty 374 NG/ML Sodium 142 (135-145) mmol/L Potassium 4.0 (3.3-5.1) mmol/L Chloride 108 (96-108) mmol/L Carbon Dioxide 25 (22-29) mmol/L Anion Gap 13 (12-20) BUN 18 H (9-16) mg/dL Creatinine 1.72 H (0.5-1.4) mg/dL Estim Creat Clear Calc 48.3 Estimated GFR 40 Random Glucose 87 (60-115) mg/dL Calcium 8.8 (8.4-10.2) mg/dL Total Bilirubin 0.3 (0.0-1.0) mg/dL Direct Bilirubin 0.2 (0.0-0.5) mg/dL AST 19 D (5-37) U/L ALT 18 (0-40) U/L Alkaline Phosphatase 70 D (39-117) U/L Troponin I High Sens (<3.5-35.0) ng/L Total Protein 7.4 (6.5-8.0) g/dL Albumin 3.9 (3.5-5.0) g/dL Lipase 71 (8-78) U/L Urine Color Urine Appearance Urine pH (5.0-8.0) Ur Specific Mercedes (1.005-1.025) Urine Protein (NEG-TRACE) MG/DL Urine Glucose (UA) (NEG) MG/DL Urine Ketones (NEG) MG/DL Urine Blood (NEG) Urine Nitrite (NEG) Ur Leukocyte Esterase (NEG) Urine RBC (0) /HPF Urine WBC (0-4) /HPF Ur Squamous Epith Cells /LPF Urine Bacteria /LPF 09/16/21 09/16/21 09/16/21 Range/Units 01:00 01:46 07:44 WBC (4.8-10.8) X10*3/uL RBC (4.60-5.80) X10*6/uL Hgb (14.0-18.0) g/dl Hct (42.0-52.0) % MCV (80.0-98.0) fL MCH (27.0-33.0) pg MCHC (31.0-36.0) g/dl RDW (11.0-16.0) % Plt Count (160-400) X10*3/uL MPV (9.4-12.4) fL Immature Gran % (Auto) (0.0-0.4) % Neut % (Auto) (45-73) % Lymph % (Auto) (20-40) % Haines % (Auto) (2-11) % Eos % (Auto) (0-4) % Baso % (Auto) (0-2) % Lymph # (Auto) (1.2-4.9) X10*3/uL Haines # (Auto) (0.1-1.2) X10*3/uL Eos # (Auto) (0.0-0.4) X10*3/uL Baso # (Auto) (0.0-0.2) X10*3/uL Abs Immat Gran (auto) (0.00-0.03) X10*3/uL Absolute Neuts (auto) (2.0-8.3) x10*3/uL Absolute Nucleated RBC (0.0-0.012) X10*3/uL Nucleated RBC % (auto) (0.0-0.2) /100WBC D-Dimer High Sensitivty NG/ML Sodium (135-145) mmol/L Potassium (3.3-5.1) mmol/L Chloride (96-108) mmol/L Carbon Dioxide (22-29) mmol/L Anion Gap (12-20) BUN (9-16) mg/dL Creatinine (0.5-1.4) mg/dL Estim Creat Clear Calc Estimated GFR Random Glucose (60-115) mg/dL Calcium (8.4-10.2) mg/dL Total Bilirubin (0.0-1.0) mg/dL Direct Bilirubin (0.0-0.5) mg/dL AST (5-37) U/L ALT (0-40) U/L Alkaline Phosphatase (39-117) U/L Troponin I High Sens 25.8 19.9 (<3.5-35.0) ng/L Total Protein (6.5-8.0) g/dL Albumin (3.5-5.0) g/dL Lipase (8-78) U/L Urine Color YELLOW Urine Appearance CLEAR Urine pH 6.0 (5.0-8.0) Ur Specific Mercedes 1.015 (1.005-1.025) Urine Protein NEG (NEG-TRACE) MG/DL Urine Glucose (UA) NEG (NEG) MG/DL Urine Ketones NEG (NEG) MG/DL Urine Blood NEG (NEG) Urine Nitrite NEG (NEG) Ur Leukocyte Esterase NEG (NEG) Urine RBC 0 (0) /HPF Urine WBC 0 (0-4) /HPF Ur Squamous Epith Cells NONE /LPF Urine Bacteria NONE /LPF <Rachell Quiros MD - Last Filed: 09/16/21 00:48> Lab Results 09/16/21 09/16/21 09/16/21 Range/Units 01:00 01:00 01:00 WBC 6.9 (4.8-10.8) X10*3/uL RBC 4.53 L (4.60-5.80) X10*6/uL Hgb 14.0 (14.0-18.0) g/dl Hct 41.3 L (42.0-52.0) % MCV 91.2 (80.0-98.0) fL MCH 30.9 (27.0-33.0) pg MCHC 33.9 (31.0-36.0) g/dl RDW 12.7 (11.0-16.0) % Plt Count 257 (160-400) X10*3/uL MPV 8.4 L (9.4-12.4) fL Immature Gran % (Auto) 0.4 (0.0-0.4) % Neut % (Auto) 54.5 (45-73) % Lymph % (Auto) 30.8 (20-40) % Haines % (Auto) 8.2 (2-11) % Eos % (Auto) 5.2 H (0-4) % Baso % (Auto) 0.9 (0-2) % Lymph # (Auto) 2.1 (1.2-4.9) X10*3/uL Haines # (Auto) 0.6 (0.1-1.2) X10*3/uL Eos # (Auto) 0.4 (0.0-0.4) X10*3/uL Baso # (Auto) 0.1 (0.0-0.2) X10*3/uL Abs Immat Gran (auto) 0.03 (0.00-0.03) X10*3/uL Absolute Neuts (auto) 3.8 (2.0-8.3) x10*3/uL Absolute Nucleated RBC 0.000 (0.0-0.012) X10*3/uL Nucleated RBC % (auto) 0.0 (0.0-0.2) /100WBC D-Dimer High Sensitivty 374 NG/ML Sodium 142 (135-145) mmol/L Potassium 4.0 (3.3-5.1) mmol/L Chloride 108 (96-108) mmol/L Carbon Dioxide 25 (22-29) mmol/L Anion Gap 13 (12-20) BUN 18 H (9-16) mg/dL Creatinine 1.72 H (0.5-1.4) mg/dL Estim Creat Clear Calc 48.3 Estimated GFR 40 Random Glucose 87 (60-115) mg/dL Calcium 8.8 (8.4-10.2) mg/dL Total Bilirubin 0.3 (0.0-1.0) mg/dL Direct Bilirubin 0.2 (0.0-0.5) mg/dL AST 19 D (5-37) U/L ALT 18 (0-40) U/L Alkaline Phosphatase 70 D (39-117) U/L Troponin I High Sens (<3.5-35.0) ng/L Total Protein 7.4 (6.5-8.0) g/dL Albumin 3.9 (3.5-5.0) g/dL Lipase 71 (8-78) U/L Urine Color Urine Appearance Urine pH (5.0-8.0) Ur Specific Mercedes (1.005-1.025) Urine Protein (NEG-TRACE) MG/DL Urine Glucose (UA) (NEG) MG/DL Urine Ketones (NEG) MG/DL Urine Blood (NEG) Urine Nitrite (NEG) Ur Leukocyte Esterase (NEG) Urine RBC (0) /HPF Urine WBC (0-4) /HPF Ur Squamous Epith Cells /LPF Urine Bacteria /LPF 09/16/21 09/16/21 09/16/21 Range/Units 01:00 01:46 07:44 WBC (4.8-10.8) X10*3/uL RBC (4.60-5.80) X10*6/uL Hgb (14.0-18.0) g/dl Hct (42.0-52.0) % MCV (80.0-98.0) fL MCH (27.0-33.0) pg MCHC (31.0-36.0) g/dl RDW (11.0-16.0) % Plt Count (160-400) X10*3/uL MPV (9.4-12.4) fL Immature Gran % (Auto) (0.0-0.4) % Neut % (Auto) (45-73) % Lymph % (Auto) (20-40) % Haines % (Auto) (2-11) % Eos % (Auto) (0-4) % Baso % (Auto) (0-2) % Lymph # (Auto) (1.2-4.9) X10*3/uL Haines # (Auto) (0.1-1.2) X10*3/uL Eos # (Auto) (0.0-0.4) X10*3/uL Baso # (Auto) (0.0-0.2) X10*3/uL Abs Immat Gran (auto) (0.00-0.03) X10*3/uL Absolute Neuts (auto) (2.0-8.3) x10*3/uL Absolute Nucleated RBC (0.0-0.012) X10*3/uL Nucleated RBC % (auto) (0.0-0.2) /100WBC D-Dimer High Sensitivty NG/ML Sodium (135-145) mmol/L Potassium (3.3-5.1) mmol/L Chloride (96-108) mmol/L Carbon Dioxide (22-29) mmol/L Anion Gap (12-20) BUN (9-16) mg/dL Creatinine (0.5-1.4) mg/dL Estim Creat Clear Calc Estimated GFR Random Glucose (60-115) mg/dL Calcium (8.4-10.2) mg/dL Total Bilirubin (0.0-1.0) mg/dL Direct Bilirubin (0.0-0.5) mg/dL AST (5-37) U/L ALT (0-40) U/L Alkaline Phosphatase (39-117) U/L Troponin I High Sens 25.8 19.9 (<3.5-35.0) ng/L Total Protein (6.5-8.0) g/dL Albumin (3.5-5.0) g/dL Lipase (8-78) U/L Urine Color YELLOW Urine Appearance CLEAR Urine pH 6.0 (5.0-8.0) Ur Specific Mercedes 1.015 (1.005-1.025) Urine Protein NEG (NEG-TRACE) MG/DL Urine Glucose (UA) NEG (NEG) MG/DL Urine Ketones NEG (NEG) MG/DL Urine Blood NEG (NEG) Urine Nitrite NEG (NEG) Ur Leukocyte Esterase NEG (NEG) Urine RBC 0 (0) /HPF Urine WBC 0 (0-4) /HPF Ur Squamous Epith Cells NONE /LPF Urine Bacteria NONE /LPF <Nicci Ordaz MD - Last Filed: 09/16/21 06:50> Lab Results 09/16/21 09/16/21 09/16/21 Range/Units 01:00 01:00 01:00 WBC 6.9 (4.8-10.8) X10*3/uL RBC 4.53 L (4.60-5.80) X10*6/uL Hgb 14.0 (14.0-18.0) g/dl Hct 41.3 L (42.0-52.0) % MCV 91.2 (80.0-98.0) fL MCH 30.9 (27.0-33.0) pg MCHC 33.9 (31.0-36.0) g/dl RDW 12.7 (11.0-16.0) % Plt Count 257 (160-400) X10*3/uL MPV 8.4 L (9.4-12.4) fL Immature Gran % (Auto) 0.4 (0.0-0.4) % Neut % (Auto) 54.5 (45-73) % Lymph % (Auto) 30.8 (20-40) % Haines % (Auto) 8.2 (2-11) % Eos % (Auto) 5.2 H (0-4) % Baso % (Auto) 0.9 (0-2) % Lymph # (Auto) 2.1 (1.2-4.9) X10*3/uL Haines # (Auto) 0.6 (0.1-1.2) X10*3/uL Eos # (Auto) 0.4 (0.0-0.4) X10*3/uL Baso # (Auto) 0.1 (0.0-0.2) X10*3/uL Abs Immat Gran (auto) 0.03 (0.00-0.03) X10*3/uL Absolute Neuts (auto) 3.8 (2.0-8.3) x10*3/uL Absolute Nucleated RBC 0.000 (0.0-0.012) X10*3/uL Nucleated RBC % (auto) 0.0 (0.0-0.2) /100WBC D-Dimer High Sensitivty 374 NG/ML Sodium 142 (135-145) mmol/L Potassium 4.0 (3.3-5.1) mmol/L Chloride 108 (96-108) mmol/L Carbon Dioxide 25 (22-29) mmol/L Anion Gap 13 (12-20) BUN 18 H (9-16) mg/dL Creatinine 1.72 H (0.5-1.4) mg/dL Estim Creat Clear Calc 48.3 Estimated GFR 40 Random Glucose 87 (60-115) mg/dL Calcium 8.8 (8.4-10.2) mg/dL Total Bilirubin 0.3 (0.0-1.0) mg/dL Direct Bilirubin 0.2 (0.0-0.5) mg/dL AST 19 D (5-37) U/L ALT 18 (0-40) U/L Alkaline Phosphatase 70 D (39-117) U/L Troponin I High Sens (<3.5-35.0) ng/L Total Protein 7.4 (6.5-8.0) g/dL Albumin 3.9 (3.5-5.0) g/dL Lipase 71 (8-78) U/L Urine Color Urine Appearance Urine pH (5.0-8.0) Ur Specific Mercedes (1.005-1.025) Urine Protein (NEG-TRACE) MG/DL Urine Glucose (UA) (NEG) MG/DL Urine Ketones (NEG) MG/DL Urine Blood (NEG) Urine Nitrite (NEG) Ur Leukocyte Esterase (NEG) Urine RBC (0) /HPF Urine WBC (0-4) /HPF Ur Squamous Epith Cells /LPF Urine Bacteria /LPF 09/16/21 09/16/21 09/16/21 Range/Units 01:00 01:46 07:44 WBC (4.8-10.8) X10*3/uL RBC (4.60-5.80) X10*6/uL Hgb (14.0-18.0) g/dl Hct (42.0-52.0) % MCV (80.0-98.0) fL MCH (27.0-33.0) pg MCHC (31.0-36.0) g/dl RDW (11.0-16.0) % Plt Count (160-400) X10*3/uL MPV (9.4-12.4) fL Immature Gran % (Auto) (0.0-0.4) % Neut % (Auto) (45-73) % Lymph % (Auto) (20-40) % Haines % (Auto) (2-11) % Eos % (Auto) (0-4) % Baso % (Auto) (0-2) % Lymph # (Auto) (1.2-4.9) X10*3/uL Haines # (Auto) (0.1-1.2) X10*3/uL Eos # (Auto) (0.0-0.4) X10*3/uL Baso # (Auto) (0.0-0.2) X10*3/uL Abs Immat Gran (auto) (0.00-0.03) X10*3/uL Absolute Neuts (auto) (2.0-8.3) x10*3/uL Absolute Nucleated RBC (0.0-0.012) X10*3/uL Nucleated RBC % (auto) (0.0-0.2) /100WBC D-Dimer High Sensitivty NG/ML Sodium (135-145) mmol/L Potassium (3.3-5.1) mmol/L Chloride (96-108) mmol/L Carbon Dioxide (22-29) mmol/L Anion Gap (12-20) BUN (9-16) mg/dL Creatinine (0.5-1.4) mg/dL Estim Creat Clear Calc Estimated GFR Random Glucose (60-115) mg/dL Calcium (8.4-10.2) mg/dL Total Bilirubin (0.0-1.0) mg/dL Direct Bilirubin (0.0-0.5) mg/dL AST (5-37) U/L ALT (0-40) U/L Alkaline Phosphatase (39-117) U/L Troponin I High Sens 25.8 19.9 (<3.5-35.0) ng/L Total Protein (6.5-8.0) g/dL Albumin (3.5-5.0) g/dL Lipase (8-78) U/L Urine Color YELLOW Urine Appearance CLEAR Urine pH 6.0 (5.0-8.0) Ur Specific Mercedes 1.015 (1.005-1.025) Urine Protein NEG (NEG-TRACE) MG/DL Urine Glucose (UA) NEG (NEG) MG/DL Urine Ketones NEG (NEG) MG/DL Urine Blood NEG (NEG) Urine Nitrite NEG (NEG) Ur Leukocyte Esterase NEG (NEG) Urine RBC 0 (0) /HPF Urine WBC 0 (0-4) /HPF Ur Squamous Epith Cells NONE /LPF Urine Bacteria NONE /LPF <Aguila Chan MD - Last Filed: 09/16/21 13:24> Discharge Plan Discharge Clinical Impression: Atypical chest pain <Rachell Quiros MD - Last Filed: 09/16/21 00:48> Patient Disposition: Home, Self-Care <Rachell Quiros MD - Last Filed: 09/16/21 00:48> Instructions: Chest Pain (ED) <Rachell Quiros MD - Last Filed: 09/16/21 00:48> Prescriptions: No Action furosemide 40 mg tablet 1 tab PO DAILY 0RF atorvastatin 40 mg tablet 1 tab PO DAILY 0RF carvedilol 25 mg tablet 1 tab PO BID 0RF alprazolam 1 mg tablet 1 tab PO BID PRN (Reason: Anxiety) 0RF isosorbide mononitrate 60 mg tablet extended release 24 hr 1 tab PO DAILY 0RF diazepam 2 mg tablet 1 tab PO TID 0RF hydroxyzine HCl 25 mg tablet 1 tab PO BID 0RF Entresto 24-26 mg tablet 1 tab PO BID 0RF amiodarone 200 mg Tablet 200 mg PO DAILY Qty: 30 0RF <Rachell Quiros MD - Last Filed: 09/16/21 00:48> Referrals: Physician,Unknown J [Primary Care Provider] - 2 days <Rachell Quiros MD - Last Filed: 09/16/21 00:48>
[2021-09-16 01:01] VITALS: RESP 18
[2021-09-16] MEDS: HYDROmorphone HCl 0.5 MG/0.5 ML SYRINGE IVPUSH (01:01)
[2021-09-16 01:07] LABS: Basophils Absolute Auto 0.1 X10*3/uL (0.0-0.2); Basophils Percent Auto 0.9 % (0-2); Eosinophils Absolute Auto 0.4 X10*3/uL (0.0-0.4); Eosinophils Percent Auto 5.2 % (0-4); Hematocrit 41.3 % (42.0-52.0); Imm Gran Abs Auto 0.03 X10*3/uL (0.00-0.03); Imm Gran Pct Auto 0.4 % (0.0-0.4); Lymphocytes Absolute Auto 2.1 X10*3/uL (1.2-4.9); Lymphocytes Percent Auto 30.8 % (20-40); MANUAL DIFF FLAG NO; Mean Corpuscular HGB Conc 33.9 g/dl (31.0-36.0); Mean Corpuscular Hemoglobin 30.9 pg (27.0-33.0); Mean Corpuscular Volume 91.2 fL (80.0-98.0); Mean Platelet Volume 8.4 fL (9.4-12.4); Monocytes Absolute Auto 0.6 X10*3/uL (0.1-1.2); Monocytes Percent Auto 8.2 % (2-11); Neutrophils Absolute Auto 3.8 x10*3/uL (2.0-8.3); Neutrophils Percent Auto 54.5 % (45-73); Platelet Count 257 X10*3/uL (160-400); Red Blood Count 4.53 X10*6/uL (4.60-5.80); Red Cell Distribution Width 12.7 % (11.0-16.0); White Blood Count 6.9 X10*3/uL (4.8-10.8)
[2021-09-16 01:14] LABS: D Dimer High Sensitivity 374 NG/ML
[2021-09-16 01:26] LABS: Alanine Aminotransferase 18 U/L (0-40); Albumin Level 3.9 g/dL (3.5-5.0); Alkaline Phosphatase 70 U/L (39-117); Aspartate Amino Transferase 19 U/L (5-37); Bilirubin Direct 0.2 mg/dL (0.0-0.5); Bilirubin Total 0.3 mg/dL (0.0-1.0); Lipase 71 U/L (8-78); Total Protein 7.4 g/dL (6.5-8.0)
[2021-09-16 01:29] LABS: Troponin-I High Sensitivity 25.8 ng/L (<3.5-35.0)
[2021-09-16 01:55] LABS: Appearance Urine CLEAR; Color Urine YELLOW; Glucose Urine UA NEG (NEG); Leukocyte Esterase Urine NEG (NEG); Nitrite Urine NEG (NEG); Specific Gravity - Urine 1.015 (1.005-1.025); Urine Blood NEG (NEG); Urine Ketones NEG (NEG); Urine Protein NEG (NEG-TRACE)
[2021-09-16 03:01] LABS: RBC Urine 0 /HPF (0); WBC Urine 0 /HPF (0-4)
[2021-09-16 03:03] LABS: Anion Gap 13 (12-20); Blood Urea Nitrogen 18 mg/dL (9-16); Calcium 8.8 mg/dL (8.4-10.2); Carbon Dioxide 25 mmol/L (22-29); Chloride 108 mmol/L (96-108); Creatinine Clr Calc Pharmacy 48.3; Estimated Glomerular Filt Rate 40; Glucose Random 87 mg/dL (60-115); Sodium 142 mmol/L (135-145)
[2021-09-16 06:00] VITALS: BP 148/46; PULSE 64; RESP 16; TEMP 36.9; O2SAT 97
[2021-09-16 07:11] VITALS: BP 159/60; PULSE 64; RESP 18; O2SAT 98
--- NOTE | 2021-09-16 07:13 | PC.NURSE ---
pt resting in the stretcher, respirations even and unlabored. pt reports left sided chest pain with some sob and slight nausea, pain at 8/10, pain get worse with deep inspirations and expirations pt explained that she will be speaking to [facility]/care team, pt denies si/hi at this time, calm and cooperative, vs stable
--- NOTE | 2021-09-16 07:22 | PC.NURSE ---
called phlebotomy for a hard stick, pt is refusing to allow this rn or anybody else but phlebotomy
[2021-09-16 08:12] LABS: Troponin-I High Sensitivity 19.9 ng/L (<3.5-35.0)
--- NOTE | 2021-09-16 08:40 | PC.NURSE ---
Caridad from care team at bedside meeting with the pt
[2021-09-16] MEDS: ALPRAZolam 0.5 MG TABLET 1 MG PO (08:54)
--- NOTE | 2021-09-16 09:24 | MHC.CARE ---
CARE Team briefly met with Pt who presented to the ED for medical complaints. Pt currently denying SI/HI/VH/AH. Pt reporting wanting to rest and CARE Team.CARE Team communicated information to RN.
[2021-09-16 10:29] VITALS: BP 162/71; PULSE 98; RESP 18; TEMP 36.6; O2SAT 98
--- NOTE | 2021-09-16 10:35 | PC.NURSE ---
pt back from nuclear medication
--- NOTE | 2021-09-16 12:04 | PC.NURSE ---
Per MD Chan plan for pt is Section 12 bedsearch, this RN reached out to [facility] to clarify disposition. Spoke to Katie (clinician who evaluated pt) to elaborate on pts mentation and inquire to see if [facility] was contacted to assess baseline for pt. Clinician states she will reach out to [facility]. Also no Section 12 noted in chart at this time. Pt continues to deny SI/HI to this RN. Disposition pending at this time.
--- NOTE | 2021-09-16 13:08 | PC.NURSE ---
spoke to jenifer again pt is cleared to go back to [facility], pt is speaking to dr robledo as well
--- NOTE | 2021-09-16 13:10 | MHC.CARE ---
CARE Team spoke with [facility] supervisor industrial [employer] at [phone]. No noted safety concerns and would like Pt to return to care. CARE Team provided information to Dr. Chan and RN. Plan for Pt to be discharged back to [facility] via EMS
[2021-09-16 13:29] VITALS: BP 161/53; PULSE 77; RESP 18; O2SAT 98
--- NOTE | 2021-09-16 13:30 | PC.NURSE ---
pt is currently eating lunch
--- NOTE | 2021-09-16 14:16 | PC.NURSE ---
@ [id number] CALL PLACED TO [facility] FOR BLS TRANSPORT BACK TO [facility] ANSWERS AND GIVES A CELL PHONE REPAIR TECHNICIAN TIME OF [phone] HER POSSIBLE EARLIEST AVAILABLE. I SAID WE WERE AT [facility],SHE AGREED.
--- NOTE | 2021-09-16 16:24 | PC.NURSE ---
pt continuos on awaiting for transport back to [facility] facility
--- NOTE | 2021-09-16 17:01 | PC.NURSE ---
@ 1630 CALL PLACED TO [facility] FOR ETA FOR THIS PT BACK TO [facility], PT WAS CONCERNED FOR THEM NOT BEING HERE. GRACIELA DOOLEY SAYS IT WAS BOOKED FOR 5PM. I SAID I WOULD CALL BACK @ 5PM IF THEY ARE NOT HERE AT THE PTS REQUEST.
--- NOTE | 2021-09-16 17:03 | PC.NURSE ---
@ 1700 CALL PLACED TO [facility] FOR ETA @ THE REQUEST OF THE PT CONCERNED HE WAS FORGOTTEN GRACIELA ANSWERS STATES ANOTHER 15 MINUTES. PT MADE AWARE AT WHICH HE SAYS HE CANT BELIEVE THIS IS HAPPENING. I TOLD HIM HE COULD MAKE A COMPLAINT WITH [facility] WITH HIS CONCERN. HE NODDED.
== END 2021-09-16 17:29 | disposition home or self-care (01) ==
PROVIDERS: Emergency Medicine; Emergency Medicine Emergency Medical Services; Emergency Provider Emergency Medicine
DX: R07.89 Other chest pain (principal); I25.10 Atherosclerotic heart disease of native coronary artery without angina pectoris; E78.00 Pure hypercholesterolemia, unspecified; Z79.899 Other long term (current) drug therapy
CPT/HCPCS: 36415; 71045; 78580; 80048; 80076; 81001; 83690; 84484; 85025; 85379; 93005; 99285; A9540; J1170

== ENCOUNTER 2023-08-12 10:21 | Outpatient (AMB) | payer MEDICARE, MEDICAID, SELFPAY ==
--- NOTE | 2023-08-12 10:24 | A.OFFVIS_ITS ---
Intake Vital Signs 08/12/23 10:25 Height 5 ft 8 in Blood Pressure Location Lt brachial Position Sitting Intake Visit Reasons: VALET PARKING ATTENDANT Recurrent venous ulcers Intake Note: New patient recurrent venous ulcers patient states has already been to [facility] has infection in the bone of the leg refussed taking shoe removal Excellence Manager Required: No Leather Stamper: Leather Stamper Present Accompanied by: RV SERVICE TECHNICIAN Allergies No Known Allergies [No Known Allergies*] Allergy (Unverified 03/23/20 19:45) HPI VALET PARKING ATTENDANT Recurrent venous ulcers HPI Details Very complex 60-year-old patient presents for evaluation regarding right calf ulceration. Patient has a history schizoaffective disorder. 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 They have developed this right calf ulceration. It continues to be a source of discomfort for the patient. Had been sent over for evaluation. Of note patient has a history of CKD, heart failure and question venous insufficiency. Has significant swelling of the lower extremities as well. [facility] Medical History CHF (congestive heart failure) Colon cancer Hypertension Schizoaffective disorder Social History Household Members: Other Housing: Retirement Do you presently have visiting nurse or other home services: No Alcohol intake: never Patient Tobacco Use Status: Never used Tobacco service: No Current occupational status: disabled Review of Systems Const Reports as per HPI ENT Reports no additional complaints Card Denies chest pain, Denies chest pain at rest and Denies chest pain with activity Resp Denies chest congestion and Denies cough GI Reports no additional complaints Musc Details: pain over varicosities, aching of lower extremities, swelling, cramping, heaviness and tiredness, itching Denies abnormal gait Skin/Breast Reports pruritus and Denies wounds Neuro Reports no additional complaints and Denies abnormal gait Psych Denies no additional complaints Physical Exam Const General: cooperative, healthy appearing and comfortable Orientation/consciousness: oriented to person, oriented to place and oriented to time Neck Carotids: no bruits Chest Chest palpation & inspection: normal inspection of the chest and normal palpation of entire chest wall Resp Effort & Inspection: normal respiratory effort and able to speak in complete sentences Cardio Rate: regular rate Heart sounds: S1 normal heart sound present and S2 normal heart sound present Peripheral pulses: Peripheral pulses 2+ throughout GI Inspection: Yes normal to inspection Skin Other: +2 edema, right calf ulcer CEAP Classification C6 - active ulcer right calf Ep - Etiology Primary As - superficial veins P - reflux General skin exam: dry skin Neuro General: oriented to person, oriented to place and oriented to time Extrem Right lower extremity: full ROM, normal capillary refill and edema Left lower extremity: full ROM, normal capillary refill and edema Psych Mental Status: mental status grossly normal Assessment & Plan Assessment & Plan (1) Ulcer of right calf: Code(s): L97.219 - Non-pressure chronic ulcer of right calf with unspecified severity Qualifiers: Non-pressure ulcer stage: unspecified non-pressure ulcer stage Qualified Code(s): L97.219 - Non-pressure chronic ulcer of right calf with unspecified severity Plan: In short patient has a nonhealing right calf ulcer. There is a fair amount of edema. There is concern that this may be multifactorial secondary to there KD heart failure and venous insufficiency. I would like to better assess for venous insufficiency status. Patient reports that they had a prior ultrasound but it appears it was only for a DVT. They refuse any further testing or evaluation. I did spend an extensive amount of time discussing if we can not treat this ulcer what would go on an could eventually even lead to potential limb loss. They continue to refuse. I did notify them should they change their mind will order testing and then they can follow up with us as an outpatient afterwards. Thank you for allowing us to assist in their care. If there are any questions or concerns please do not hesitate to contact us Coding Level of Care Code New Pt Level 4 (93783) Diagnoses Ulcer of right calf, unspecified ulcer stage L97. Non-pressure ulcer stage: unspecified non-pressure ulcer stage
== END 2023-08-12 10:58 | disposition home or self-care (01) ==
PROVIDERS: Visit Provider Surgery Vascular Surgery
DX: L97.219 Non-pressure chronic ulcer of right calf with unspecified severity (principal)
CPT/HCPCS: 99204

== ENCOUNTER → 2023-08-12 10:21 | Outpatient (BNVA) | payer MEDICARE, MEDICAID, SELFPAY | PROVIDERS: Visit Provider Surgery Vascular Surgery | DX: L97.219 Non-pressure chronic ulcer of right calf with unspecified severity (principal) | CPT/HCPCS: 99202 ==

== ENCOUNTER 2023-08-26 12:53 | Outpatient (REF) | payer MEDICARE, MEDICAID, SELFPAY ==
--- NOTE | ~2023-08-26 | US_ITS ---
EXAMINATION: US VENOUS ULTRASOUND WITH DOPPLER LOWER EXTREMITY, RIGHT CLINICAL INFORMATION: Chronic venous insufficiency with lower extremity varicose veins COMPARISON: None available. TECHNIQUE: Limited duplex ultrasound evaluation of the right lower extremity superficial veins FINDINGS: Evaluation is limited as patient declined majority of the examination. Patient declined evaluation of the great saphenous vein at the saphenofemoral junction, proximal thigh, mid to thigh, ankle and throughout the small saphenous vein. The great saphenous vein from the distal thigh to mid calf was evaluated. Above Knee: 0.3 cm; Reflux: 0 ms At Knee: 0.3 cm; Reflux: 0 ms Below Knee: 0.2 cm; Reflux: 0 ms Mid Calf: 0.2 cm; Reflux: 0 ms PERFORATORS: Location: Mid calf Size: 0.3 cm Reflux: 1712 ms VARICOSITIES: Location: None significant. All varicose veins are less than 3 mm in size without reflux Size: NA Reflux: NA US/US venous duplex LE RT IMPRESSION: Limited evaluation as described above. No significant reflux in the evaluated great saphenous vein.
== END 2023-08-26 12:54 | disposition home or self-care (01) ==
LOC: HO.US 12:53
PROVIDERS: PCP Hospitalist; Visit Provider Hospitalist
DX: I87.2 Venous insufficiency (chronic) (peripheral) (principal)
CPT/HCPCS: 93971

== ENCOUNTER 2024-03-22 09:21 | Emergency (ER) | payer MEDICARE, MEDICAID, SELFPAY ==
--- NOTE | 2024-03-22 | ECG_ITS ---
Test Reason : CHEST PAIN Blood Pressure : / mmHG Vent. Rate : 071 BPM Atrial Rate : 071 BPM P-R Int : 216 ms QRS Dur : 174 ms QT Int : 486 ms P-R-T Axes : 044 -40 -04 degrees QTc Int : 528 ms Sinus rhythm with 1st degree A-V block with occasional Premature ventricular complexes Left axis deviation Right bundle branch block Left ventricular hypertrophy ( R in aVL , Theo product ) Abnormal ECG When compared with ECG of 16-SEP-2021 00:36, No significant change was found Referred By: Suellen Knott Electronically Signed By:CRYS WIN
--- NOTE | ~2024-03-22 | US_ITS ---
EXAMINATION: US TRIPLEX LOWER EXTREMITY, RIGHT CLINICAL INFORMATION: Right lower extremity pain and swelling. COMPARISON: April 25, 2021 TECHNIQUE: Color-flow triplex imaging with spectral analysis and compression Doppler were performed on the right lower extremity. FINDINGS: Respiratory variation, normal compression and augmented flow are noted throughout the right lower extremity. The visualized common femoral vein, superficial femoral vein, profunda femoral vein, popliteal vein and midcalf peroneal and posterior tibial venous segments show no evidence of deep venous thrombosis. US/US venous duplex LE RT IMPRESSION: No evidence of deep venous thrombosis involving the right lower extremity. Electronically signed by: Gavin Lima MD 03/22/2024 12:32 PM EDT
--- NOTE | 2024-03-22 09:24 | ED.GENADULT ---
HPI - General Adult General Chief complaint: Extremity Injury, Lower Stated complaint: R LEG PAIN, H/O CELLULITIS FROM SNF PER EMS Time Seen by Provider: 03/22/24 09:24 Source: patient and EMS Mode of arrival: EMS Limitations: no limitations History of Present Illness ED Provider: Suellen Knott PA-C HPI narrative: Patient is a 68 year old assigned male at , now female, with a history of CKD, NICM, venous insufficiency, and schizoaffective disorder presenting to the emergency department today with a persistent right lower leg cellulitis. Patient states that she has had a right lower leg infection for awhile but the [facility] was trying to give her Doxycycline which she refused because she knows that is for stomach problems and not skin problems. Patient states that she would like something for the right lower leg pain and usually 4mg of IV Morphine works. Patient denies any dizziness, lightheadedness, abdominal pain, nausea, vomiting, fever, chills, blurry vision, double vision, loss of vision, chest pain, difficulty breathing, shortness of breath, back pain, night sweats, pain with urination, increased urinary frequency, increased urinary urgency, blood in her urine or stool, syncope or a near syncopal episode, recent trauma or falls, bowel incontinence, bladder incontinence, or any other complaints at this time. Onset (ago): week(s) (1) Location: right and lower extremity Relieving factors: none Exacerbating factors: none Associated symptoms: denies other symptoms Treatments prior to arrival: none Related Data Home Medications ?Medication ?Instructions ?Recorded ?Confirmed alprazolam 1 mg tablet 1 mg PO BID 08/12/23 03/22/24 amiodarone 200 mg tablet 200 mg PO DAILY 08/12/23 03/22/24 aspirin 81 mg tablet,delayed 81 mg PO DAILY 08/12/23 03/22/24 release (Adult Aspirin Regimen) atorvastatin 40 mg tablet 40 mg PO DAILY 08/12/23 03/22/24 carvedilol 6.25 mg tablet 6.25 mg PO BID 08/12/23 03/22/24 docusate sodium 100 mg capsule 100 mg PO DAILY 08/12/23 03/22/24 (Colace) furosemide 40 mg tablet 40 mg PO BID 08/12/23 03/22/24 hydroxyzine HCl 25 mg tablet 25 mg PO Q12H PRN increased 08/12/23 03/22/24 agitation isosorbide mononitrate 60 mg 60 mg PO BID 08/12/23 03/22/24 tablet,extended release 24 hr lactulose 10 gram/15 mL oral 10 g PO BEDTIME PRN Constipation 08/12/23 03/22/24 solution loperamide 2 mg capsule 4 mg PO DAILY PRN Loose Stool 08/12/23 03/22/24 lorazepam 1 mg tablet 1 mg PO BEDTIME 08/12/23 03/22/24 ondansetron HCl 4 mg tablet 4 mg PO Q6H PRN nausea/vomiting 08/12/23 03/22/24 perphenazine 8 mg tablet 8 mg PO BID 08/12/23 03/22/24 acetaminophen 500 mg tablet 1,000 mg PO TID PRN Pain 03/22/24 03/22/24 diphenhydramine HCl 25 mg tablet 50 mg PO Q8H PRN Allergy Symptoms 03/22/24 03/22/24 doxycycline hyclate 100 mg tablet 100 mg PO BID 03/22/24 03/22/24 loperamide 2 mg capsule 2 mg PO BID PRN Loose Stool 03/22/24 03/22/24 nitroglycerin 0.3 mg sublingual 0.3 mg sublingual Q5M PRN 0.9 03/22/24 03/22/24 tablet sennosides 8.6 mg tablet (senna) 8.6 mg PO DAILY PRN Constipation 03/22/24 03/22/24 sennosides 8.6 mg tablet (senna) 17.2 mg PO DAILY 03/22/24 03/22/24 Previous Rx's ?Medication ?Instructions ?Recorded cephalexin 500 mg capsule 500 mg PO Q6H 7 days #28 caps 03/22/24 doxycycline hyclate 100 mg tablet 100 mg PO BID 7 days #14 tabs 03/22/24 Allergies Allergy/AdvReac Type Severity Reaction Status Date / Time No Known Allergies Allergy Verified 03/22/24 09:26 [No Known Allergies*] Review of Systems Constitutional: Constitutional: Reports no additional constitutional complaints, Denies chills, Denies fever(s) and Denies night sweats Eyes: Eyes: Reports no additional eye complaints, Denies blurry vision, Denies change in vision, Denies diplopia, Denies eye discharge, Denies loss of vision and Denies eye pain ENT: Denies dizziness Cardiovascular: Cardiovascular: Reports no additional cardiovascular complaints, Denies chest pain, Denies lightheadedness, Denies Loss of Consciousness and Denies dyspnea Respiratory: Respiratory: Reports no additional respiratory complaints and Denies dyspnea Gastrointestinal: Gastrointestinal: Reports no additional gastrointestinal complaints, Denies abdominal pain, Denies melena, Denies hematochezia, Denies change in bowel habits and Denies change in stool character Genitourinary: Genitourinary: Reports no additional male genitourinary complaints, Denies hematuria, Denies oliguria, Denies difficulty urinating, Denies dysuria, Denies urinary frequency, Denies urinary hesitancy, Denies urinary incontinence and Denies urinary urgency Musculoskeletal: Musculoskeletal: Reports no additional musculoskeletal complaints, Denies numbness and Denies tingling Comments: right lower extremity redness, pain, and swelling Neurologic: Denies dizziness, Denies loss of vision, Denies numbness and Denies tingling Psychiatric: Psychiatric: Reports no additional psychiatric complaints Endocrine: Endocrine: Reports no additional endocrine complaints Hematologic/Lymphatic: Hematologic/Lymphatic: Reports no additional hematologic/lymphatic complaints Allergic/Immunologic: Allergic/Immunologic: Reports no additional allergic/immunologic complaints [facility] Past Medical History Attestation statement: The following information was validated with the patient. Source: old records reviewed and nursing notes reviewed Medical History Hypertension Schizoaffective disorder CHF (congestive heart failure) Colon cancer Social History Social History Household Members: Other Housing: Shelter Do you presently have visiting nurse or other home services: No Alcohol intake: never Patient Tobacco Use Status: Never used Tobacco Smoked in Last 30 Days: No Use of substances other than those prescribed or required for medical reasons: No Advance Directives: No Advance Directives Information Provided: No Do you have a plan to hurt others: No Plan service: No Current occupational status: disabled Physical Exam ED Vital Signs: Vital Signs - 24 hr 03/22/24 09:42 03/22/24 12:36 Temperature 98.3 F 97.9 F Pulse Rate 69 78 Respiratory Rate 18 22 H Blood Pressure 153/62 H 166/63 H Pulse Oximetry 94 97 Oxygen Delivery Method Room Air Room Air BMI result Body Mass Index 27.4 Const General: cooperative, no acute distress, alert and awake Nutritional Appearance: well nourished Orientation/consciousness: patient oriented x3 Limitations: no limitations HENMT Head: Yes normal to inspection and Yes atraumatic Ears: hearing grossly normal bilaterally and external ears normal General nose exam: Normal external nose present, no nasal discharge noted and no epistaxis Face and sinus: Yes normal facial exam, No abrasion and No laceration Mouth: Normal oral and palatal mucosa present, no drooling and no muffled voice Eyes General: appearance normal, both eyes and all related structures Periorbital: periorbital findings normal Eyelids: Yes eyelids normal Conjunctivae: conjunctivae normal Pupils: Equal, round and reactive pupils present EOM: EOMs intact bilaterally Neck Neck: Yes normal visual inspection, Yes full ROM and Yes no lymphadenopathy Chest Chest palpation & inspection: normal inspection of the chest Resp Effort & Inspection: normal respiratory effort and able to speak in complete sentences GI Inspection: Yes normal to inspection Neuro General: patient oriented x3 and moves all extremities Cranial nerves: Yes Equal, round and reactive pupils present Cognition (Neuro): normal cognition Extrem Other: right lower extremity erythema, warm to touch, and mild swelling General: Yes full ROM and Yes capillary refill normal Psych Appearance: grossly normal Mental Status: mental status grossly normal Affect: normal affect Attitude: cooperative Thought process: Normal thought process present Thought content: Normal thought content present Insight: Good insight present (Psych) Medications Administered Discontinued Medications Generic Name Dose Route Start Last Admin Trade Name Wileyq PRN Reason Stop Dose Admin Hydromorphone HCl 1 mg 03/22/24 13:13 03/22/24 13:27 Hydromorphone Hcl 1 Mg/Ml Syringe IVPUSH 03/22/24 13:14 1 mg ONCE ONE Administration Protocol Ceftriaxone Sodium 1 gm/ 50 mls @ 100 mls/hr 03/22/24 09:56 03/22/24 10:53 Sodium Chloride IV 03/22/24 10:25 Infused ONCE ONE Infusion Morphine Sulfate 4 mg 03/22/24 09:56 03/22/24 10:23 Morphine Sulfate 4 Mg/Ml Cartridge IVPUSH 03/22/24 09:57 4 mg ONCE ONE Administration Protocol Ondansetron HCl 4 mg 03/22/24 09:56 03/22/24 10:23 Ondansetron Hcl 4 Mg/2 Ml Vial IVPUSH 03/22/24 09:57 4 mg ONCE ONE Administration Medical Decision Making Medical Decision Making [facility] Narrative: Patient is a 68 year old assigned male at , now female, with a history of CKD, NICM, venous insufficiency, and schizoaffective disorder presenting to the emergency department today with right lower leg pain. Patient's physical exam showed a right lower leg cellulitis. Patient's blood work showed an elevated ESR of 30, CRP of 2.01, and mildly elevated CR of 1.6 which is chronic for the patient. Patient's RLE US showed no acute process. I explained my physical exam findings as well as all test results to the patient. I answered all questions asked by the patient. I stressed the importance of the patient taking her medication as directed (either prescribed or as the over the counter packaging recommends). I stressed the importance of the patient following up with her primary care provider. I stressed the importance of the patient returning to the emergency department immediately if her symptoms were to worsen or if she were to develop any dizziness, shortness of breath, difficulty breathing, chest pain, blurry vision, loss of vision, nausea, vomiting, abdominal pain, fever, chills, back pain, or any other complaints. Patient verbalized agreement and understanding with this treatment plan and discharge. Differential Diagnosis Differential Diagnoses: The differential diagnosis associated with the presentation includes Cellulitis DVT Leg pain Admission/Observation Consideration of admission/observation: Escalation of care including admission/observation considered Patient would have been admitted to the hospital had her work up had any findings where hospital admission was appropriate and her clinical presentation warranted hospital admission. Lab Data [facility] Lab Attestation statement: I reviewed the patient's lab results. My interpretation of these results are in the [facility] Rationale portion of this note. 03/22/24 09:46 03/22/24 09:45 Labs: Lab Results 03/22/24 03/22/24 Range/Units 09:45 09:46 WBC 6.0 (4.8-10.8) X10*3/uL RBC 4.08 L (4.60-5.80) X10*6/uL Hgb 11.2 L (14.0-18.0) g/dl Hct 34.1 L (42.0-52.0) % MCV 83.6 (80.0-98.0) fL MCH 27.5 (27.0-33.0) pg MCHC 32.8 (31.0-36.0) g/dl RDW 13.9 (11.0-16.0) % Plt Count 229 (160-400) X10*3/uL MPV 8.4 L (9.4-12.4) fL Immature Gran % (Auto) 0.3 (0.0-0.4) % Neut % (Auto) 66.9 (45-73) % Lymph % (Auto) 20.2 (20-40) % [place] % (Auto) 7.2 (2-11) % Eos % (Auto) 4.2 H (0-4) % Baso % (Auto) 1.2 (0-2) % Lymph # (Auto) 1.2 (1.2-4.9) X10*3/uL [place] # (Auto) 0.4 (0.1-1.2) X10*3/uL Eos # (Auto) 0.3 (0.0-0.4) X10*3/uL Baso # (Auto) 0.1 (0.0-0.2) X10*3/uL Abs Immat Gran (auto) 0.02 (0.00-0.03) X10*3/uL Absolute Neuts (auto) 4.0 (2.0-8.3) x10*3/uL Absolute Nucleated RBC 0.000 (0.0-0.012) X10*3/uL Nucleated RBC % (auto) 0.0 (0.0-0.2) /100WBC ESR 30 H (0-15) MM/HR Sodium 137 (135-145) mmol/L Potassium 3.6 (3.3-5.1) mmol/L Chloride 107 (96-108) mmol/L Carbon Dioxide 23 (22-29) mmol/L Anion Gap 11 L (12-20) BUN 22 H (9-16) mg/dL Creatinine 1.60 H (0.5-1.4) mg/dL Estim Creat Clear Calc 42.7 Estimated GFR 43 Random Glucose 96 (60-115) mg/dL Calcium 9.0 (8.4-10.2) mg/dL Total Bilirubin 0.3 (0.0-1.0) mg/dL AST 14 (5-37) U/L ALT 17 (0-40) U/L Alkaline Phosphatase 62 (39-117) U/L Troponin I High Sens 13.6 (<3.5-35.0) ng/L C-Reactive Protein 2.01 H (< or = 0.50) mg/dL Total Protein 7.2 (6.5-8.0) g/dL Albumin 3.6 (3.5-5.0) g/dL Independent Interpretation I performed an independent interpretation of an: Ultrasound Interpretation: My interpretation is in agreement with the radiologist's impression of this imaging study. EXAMINATION: US TRIPLEX LOWER EXTREMITY, RIGHT CLINICAL INFORMATION: Right lower extremity pain and swelling. COMPARISON: April 25, 2021 TECHNIQUE: Color-flow triplex imaging with spectral analysis and compression Doppler were performed on the right lower extremity. FINDINGS: Respiratory variation, normal compression and augmented flow are noted throughout the right lower extremity. The visualized common femoral vein, superficial femoral vein, profunda femoral vein, popliteal vein and midcalf peroneal and posterior tibial venous segments show no evidence of deep venous thrombosis. US/US venous duplex LE RT IMPRESSION: No evidence of deep venous thrombosis involving the right lower extremity. Electronically signed by: Gavin Lima MD 03/22/2024 12:32 PM EDT RP Dictated By: Quique Lima MD Signed By: Electronically signed by Quique Lima MD 03/22/24 1232 Radiology Impression Discussion of test interpretation with radiology: I have reviewed the radiologist's reading. Independent Historian Clinical information obtained from an independent historian. History obtained from or confirmed by: EMS (EMS provided additional history and confirmed the history provided by the patient.) Discharge Plan Discharge Clinical Impression: Cellulitis of leg Patient Disposition: Xfer SNF Transfer Details: Back to [facility] Instructions: Cellulitis (DC) Additional Instructions: Take your antibiotic as prescribed. Follow up with your primary care provider. Return to the emergency department immediately if your symptoms worsen or if you develop any dizziness, shortness of breath, difficulty breathing, chest pain, blurry vision, loss of vision, nausea, vomiting, abdominal pain, fever, chills, back pain, or any other complaints. Prescriptions: New cephalexin 500 mg capsule 500 mg PO Q6H 7 Days Qty: 28 0RF doxycycline hyclate 100 mg tablet 100 mg PO BID 7 Days Qty: 14 0RF No Action alprazolam 1 mg tablet 1 mg PO BID atorvastatin 40 mg tablet 40 mg PO DAILY furosemide 40 mg tablet 40 mg PO BID hydroxyzine HCl 25 mg tablet 25 mg PO Q12H PRN (Reason: increased agitation) isosorbide mononitrate 60 mg tablet extended release 24 hr 60 mg PO BID acetaminophen 500 mg Tablet 1,000 mg PO TID PRN (Reason: Pain) sennosides [senna] 8.6 mg Tablet 8.6 mg PO DAILY PRN (Reason: Constipation) sennosides [senna] 8.6 mg Tablet 17.2 mg PO DAILY nitroglycerin 0.3 mg Tablet, Sublingual 0.3 mg SUBLINGUAL Q5M PRN (Reason: 0.9) Rx Instructions: do not exceed 3 doses per episode diphenhydramine HCl 25 mg Tablet 50 mg PO Q8H PRN (Reason: Allergy Symptoms) doxycycline hyclate 100 mg Tablet 100 mg PO BID loperamide 2 mg Capsule 2 mg PO BID MDD 8 PRN (Reason: Loose Stool) Rx Instructions: GIVE 2 TABS BY MOUTH FOR 1ST LOOSE STOOL, THEN 1 TAB EACH SUBSEQUENT LOOSE STOOL, 4 TABS MAX DAILY amiodarone 200 mg tablet 200 mg PO DAILY aspirin [Adult Aspirin Regimen] 81 mg tablet,delayed release (DR/EC) 81 mg PO DAILY carvedilol 6.25 mg tablet 6.25 mg PO BID docusate sodium [Colace] 100 mg capsule 100 mg PO DAILY lactulose 10 gram/15 mL solution 10 g PO BEDTIME PRN (Reason: Constipation) Rx Instructions: if senna is innefective loperamide 2 mg capsule 4 mg PO DAILY MDD 8 PRN (Reason: Loose Stool) Rx Instructions: GIVE 2 TABS BY MOUTH FOR 1ST LOOSE STOOL, THEN 1 TAB EACH SUBSEQUENT LOOSE STOOL, 4 TABS MAX DAILY perphenazine 8 mg tablet 8 mg PO BID lorazepam 1 mg tablet 1 mg PO BEDTIME ondansetron HCl 4 mg tablet 4 mg PO Q6H PRN (Reason: nausea/vomiting) Referrals: Dung España DO [Primary Care Provider] - Print Language: Wallisian
[2024-03-22 09:25] VITALS: BP 132/76; PULSE 76; O2SAT 98; BMI 27.4
--- NOTE | 2024-03-22 09:30 | PC.NURSE ---
a&ox4. vss and up to date. nsr on the vehicle monitor technician. pt [facility] d/t right LE infection x 1 week - SNF failed to administer PO doxycycline multiple times throughout the week. pt also c/o nonradiating sternal chest pain x friday. no sob/wob noted. upon ED arrival - pt refusing to be changed over/ekg performed/placed on vehicle monitor technician/have vital signs obtained. pt originally refusing care and stating that she actually does not have chest pain and she only wants us to focus on her RLE. pt educated that if she was originally having chest pain, it is important to perform all interventions. after multiple attempts to perform interventions, pt eventually compliant w/ care. 20gIV placed in the right AC - labs obtained/sent to lab. pt placed on vehicle monitor technician playing nsr. no sob/wob noted. respirations even/unlabored. plan of care ongoing. call gardner placed within reach.
[2024-03-22 09:42] VITALS: BP 153/62; PULSE 69; RESP 18; TEMP 36.8; O2SAT 94
[2024-03-22 09:59] LABS: MANUAL DIFF FLAG NO
[2024-03-22 10:00] LABS: Basophils Absolute Auto 0.1 X10*3/uL (0.0-0.2); Basophils Percent Auto 1.2 % (0-2); Eosinophils Absolute Auto 0.3 X10*3/uL (0.0-0.4); Eosinophils Percent Auto 4.2 % (0-4); Hematocrit 34.1 % (42.0-52.0); Hemoglobin 11.2 g/dl (14.0-18.0); Imm Gran Abs Auto 0.02 X10*3/uL (0.00-0.03); Imm Gran Pct Auto 0.3 % (0.0-0.4); Lymphocytes Absolute Auto 1.2 X10*3/uL (1.2-4.9); Lymphocytes Percent Auto 20.2 % (20-40); Mean Corpuscular HGB Conc 32.8 g/dl (31.0-36.0); Mean Corpuscular Hemoglobin 27.5 pg (27.0-33.0); Mean Corpuscular Volume 83.6 fL (80.0-98.0); Mean Platelet Volume 8.4 fL (9.4-12.4); Monocytes Absolute Auto 0.4 X10*3/uL (0.1-1.2); Monocytes Percent Auto 7.2 % (2-11); Neutrophils Percent Auto 66.9 % (45-73); Platelet Count 229 X10*3/uL (160-400); Red Blood Count 4.08 X10*6/uL (4.60-5.80); Red Cell Distribution Width 13.9 % (11.0-16.0)
[2024-03-22 10:14] LABS: Alanine Aminotransferase 17 U/L (0-40); Albumin Level 3.6 g/dL (3.5-5.0); Alkaline Phosphatase 62 U/L (39-117); Anion Gap 11 (12-20); Aspartate Amino Transferase 14 U/L (5-37); Bilirubin Total 0.3 mg/dL (0.0-1.0); Blood Urea Nitrogen 22 mg/dL (9-16); C Reactive Protein 2.01 mg/dL (< or = 0.50); Carbon Dioxide 23 mmol/L (22-29); Chloride 107 mmol/L (96-108); Creatinine Clr Calc Pharmacy 42.7; Estimated Glomerular Filt Rate 43; Glucose Random 96 mg/dL (60-115); Potassium 3.6 mmol/L (3.3-5.1); Sodium 137 mmol/L (135-145); Total Protein 7.2 g/dL (6.5-8.0)
[2024-03-22 10:21] LABS: Troponin-I High Sensitivity 13.6 ng/L (<3.5-35.0)
[2024-03-22] MEDS: Morphine Sulfate 4 MG/ML CARTRIDGE IVPUSH (10:23)
[2024-03-22] MEDS: cefTRIAXone sodium 1 GM in 0.9 % Sodium Chloride 50 ML IV (10:23)
[2024-03-22] MEDS: ondansetron HCL 4 MG/2 ML VIAL IVPUSH (10:23)
--- NOTE | 2024-03-22 10:27 | PC.NURSE ---
pt medicated per provider order. effectiveness pending. respirations remain even/unlabored. plan of care ongoing. call gardner placed within reach.
[2024-03-22 10:43] LABS: Erythrocyte Sedimentation Rate 30 MM/HR (0-15)
--- NOTE | 2024-03-22 11:24 | PHA.MEDREC ---
Pharmacy Consult ? Medication Reconciliation Pharmacy has completed the medication reconciliation, utilized list from [facility].
--- NOTE | 2024-03-22 11:45 | PC.NURSE ---
ultrasound being completed at this time.
[2024-03-22 12:36] VITALS: BP 166/63; PULSE 78; RESP 22; TEMP 36.6; O2SAT 97
[2024-03-22] MEDS: HYDROmorphone HCl 1 MG/ML SYRINGE IVPUSH (13:27)
[2024-03-22 14:34] VITALS: BP 161/57; PULSE 71; RESP 20; TEMP 36.8; O2SAT 97
[2024-03-22 16:09] VITALS: BP 161/57; PULSE 71; RESP 20; TEMP 36.8; O2SAT 97
== END 2024-03-22 16:09 ==
PROVIDERS: Physician Assistant Medical; Emergency Provider Emergency Medicine; PCP Hospitalist
DX: L03.115 Cellulitis of right lower limb (principal); M79.661 Pain in right lower leg; R60.0 Localized edema; R94.31 Abnormal electrocardiogram [ECG] [EKG]; I45.10 Unspecified right bundle-branch block; R07.89 Other chest pain; Z79.899 Other long term (current) drug therapy
CPT/HCPCS: 36415; 80053; 84484; 85025; 85652; 86140; 93005; 93971; 96365; 96375; 99284; J0696; J1170; J2270; J2405